=== PATIENT | female | born 2000 ===

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

== ENCOUNTER 2022-04-05 16:00 | Emergency (ER) | payer OTHER, SELFPAY ==
[2022-04-05 16:04] VITALS: BP 158/86; PULSE 82; RESP 18; O2SAT 98; BMI 30.9
--- NOTE | 2022-04-05 16:06 | ED_ITS ---
HPI - General Adult General Chief complaint: General Medical Stated complaint: Neck swelling Time Seen by Provider: 04/05/22 16:24 Source: patient Mode of arrival: ambulatory Limitations: no limitations History of Present Illness HPI narrative: 21-year-old female presents to the ER for evaluation of a sore throat for the last 1 week. She feels like she has swollen lymph nodes. She reports pain with eating and drinking but she is able to do so. No fevers. She states her 1-year-old son was home last week with URI symptoms and sickness. He was seen at [facility] and was tested negative for ?all viruses. ? patient report MD complaint: Sore throat, swollen lymph nodes Onset (ago): week(s) (1) Location: mouth and neck Radiation: non-radiation Severity: moderate Severity scale (1-10): 7 Quality: aching Pain Consistency: intermittent Relieving factors: none Exacerbating factors: eating Associated symptoms: denies other symptoms Treatments prior to arrival: none Related Data Previous Rx's Medication Instructions Recorded amoxicillin 875 mg-potassium 1 tab PO BID #20 tabs 04/05/22 clavulanate 125 mg tablet ibuprofen 600 mg tablet 600 mg PO Q8H PRN fever or pain 04/05/22 #14 tabs Allergies Allergy/AdvReac Type Severity Reaction Status Date / Time No Known Allergies Allergy Verified 02/16/21 11:41 Review of Systems Review of Systems: Yes all other systems are reviewed and are negative [facility] Past Medical History Medical History No active medical problems Family History Family History Mother Lymphoma Father No problems noted. Maternal Grandmother No problems noted. Maternal Grandfather No problems noted. Paternal Grandmother Arthritis Alzheimer's dementia Paternal Grandfather No problems noted. Sister No problems noted. Social History Social History Household Members: Significant Other and Family Housing: Apartment Alcohol intake: never Patient Tobacco Use Status: Never used Tobacco Advance Directives: No Advance Directives Information Provided: Yes Gender identity: Female Physical Exam ED Vital Signs: Vital Signs - 24 hr 04/05/22 16:04 Pulse Rate 82 Respiratory Rate 18 Blood Pressure 158/86 H Pulse Oximetry 98 Oxygen Delivery Method Room Air BMI result Body Mass Index 30.9 Appearance: Alert. Oriented X3. No acute distress. Eyes: Pupils equal, round and reactive to light. ENT: Pharynx with mild to moderate posterior pharyngeal erythema without tonsillar swelling or exudate. Uvula midline. Normal voice, handling se cretions normally. Neck: Normal inspection. Neck supple. Anterior cervical lymphadenopathy noted. Trachea midline. CVS: Normal heart rate and rhythm. Pulses normal. Respiratory: No respiratory distress. Breath sounds normal. Skin: Skin warm and dry. Normal skin color. Normal skin turgor. No rashes. Extremities: Normal inspection x4, normal range of motion. Neuro: Oriented X 3. Nonfocal, steady gait Course Course Course Narrative: 21 yo female presents to the ER for sore throat starting 1 week ago. She states her 1-year-old son was home last week with URI. He tested negative for everything at the [facility]. She denies fevers at home. Able to tolerate p.o. but swallowing is painful. No evidence of peritonsillar or retropharyngeal abscess on examination. Handling secretions normally, normal voice. Strep and viral swabs ordered. Reevaluation(s) Reevaluation #1: Patient tested positive for strep throat. Will treat accordingly. Patient counseled on results and management. Stable for discharge home. Medical Decision Making Medical Decision Making [facility] Narrative: 21-year-old female presenting to the ER for evaluation of strep throat. She reports sensation of anterior neck swelling. None appreciated on examination. Her airway is pain. Normal voice and healing secretions normally. Exam is not consistent with retropharyngeal or peritonsillar abscess. Doubt mono. Was swabbed for strep, COVID, flu Differential Diagnosis Differential Diagnoses: The differential diagnosis associated with the presentation includes Strep pharyngitis, COVID, flu, RSV, other viral syndrome, retropharyngeal abscess, peritonsillar abscess, mononucleosis Lab Data [facility] Lab Attestation statement: I reviewed the patient's lab results. Patient positive for group a strep Labs: Lab Results 04/05/22 Range/Units 16:09 S. pyogenes GrpA JAVIER Positive A (Negative) Prescription Management I considered prescription management with: Antibiotic Prescribed penicillin for strep throat. Critical Care Time Critical Care Time Critical Care Time: No Discharge Plan Discharge Clinical Impression: Acute streptococcal pharyngitis Patient Disposition: Home, Self-Care Instructions: Strep Throat (ED) Additional Instructions: You tested positive for strep throat today. Take the prescribed antibiotics as directed. Complete the entire course and did not miss any doses. Recommend warm saltwater gargles several times per day. Recommend [id number] Chloraseptic spray and Cepacol lozenges for sore throat. Rest and drink plenty of fluids. If you develop new or worsening symptoms call 911 or come back to the ER for further evaluation. Prescriptions: New amoxicillin-pot clavulanate 875-125 mg tablet 1 tab PO BID Qty: 20 0RF ibuprofen 600 mg tablet 600 mg PO Q8H PRN (Reason: fever or pain) Qty: 14 0RF Stand Alone Forms: Work/School Release
[2022-04-05 16:21] LABS: IDNOW Serial# 6674DD1D; Strep A Nucleic Acid Positive (Negative)
[2022-04-05 16:43] LABS: COVID-19 Test Negative (Negative); IDNOW Serial# 16C4AD1C
[2022-04-05 16:44] LABS: IDNOW Serial# BCCEAD1C; Influenza A Negative (Negative); Influenza B2 Negative (Negative)
== END 2022-04-05 16:29 | disposition home or self-care (01) ==
PROVIDERS: Physician Assistant; Emergency Provider Emergency Medicine Emergency Medical Services
DX: J02.0 Streptococcal pharyngitis (principal); Z20.822 Contact with and (suspected) exposure to COVID-19
CPT/HCPCS: 87502; 87635; 87651; 99282; 99283

== ENCOUNTER → 2022-04-27 09:51 | Outpatient (BNVA) | payer OTHER, SELFPAY | PROVIDERS: Visit Provider Advanced Practice Midwife | DX: O92.29 Other disorders of breast associated with pregnancy and the puerperium (principal) | CPT/HCPCS: 99212 ==

== ENCOUNTER 2022-05-05 15:21 | Outpatient (REF) | payer OTHER, SELFPAY ==
--- NOTE | ~2022-05-05 | US_ITS ---
EXAMINATION: US DIAGNOSTIC ULTRASOUND BREAST, LEFT CLINICAL INFORMATION: Left breast pain. Constant for 2 months.. COMPARISON: None. TECHNIQUE: Ultrasound of the breast is performed with real-time whitehead scale imaging and color Doppler. FINDINGS: There is no focal suspicious finding. There is no solid mass, architectural abnormality, duct ectasia, or edema in the soft tissue planes. Results are discussed with the patient at time of visit. US/US breast LT limited IMPRESSION: No suspicious left breast ultrasound findings. ASSESSMENT: BI-RADS 1: Negative RECOMMENDATION: Clinical follow-up
== END 2022-05-05 15:22 | disposition home or self-care (01) ==
LOC: HO.MAMMO 15:21
PROVIDERS: Visit Provider Advanced Practice Midwife
DX: O92.29 Other disorders of breast associated with pregnancy and the puerperium (principal)
CPT/HCPCS: 76642

== ENCOUNTER 2022-06-30 13:53 | Outpatient (REF) | payer OTHER, SELFPAY ==
[2022-07-01 02:29] LABS: CT PCR NOT DETECTED (Not Detect.); NG PCR NOT DETECTED (Not Detect.)
[2022-07-01 09:06] LABS: BV Int Neg Control Negative (Negative); BV Int Pos Control Positive (Positive)
== END 2022-06-30 13:54 | disposition home or self-care (01) ==
LOC: HO.LNP 13:53
PROVIDERS: Visit Provider Advanced Practice Midwife
DX: Z01.419 Encounter for gynecological examination (general) (routine) without abnormal findings (principal); Z20.2 Contact with and (suspected) exposure to infections with a predominantly sexual mode of transmission
CPT/HCPCS: 0353U; 87480; 87510; 87660

== ENCOUNTER 2022-11-14 20:19 | Emergency (ER) | payer OTHER, SELFPAY ==
--- NOTE | ~2022-11-14 | US_ITS ---
EXAMINATION: US OBSTETRICAL ULTRASOUND CLINICAL INFORMATION: Abdominal pain COMPARISON: ultrasound 01/22/2021 LMP: 09/08/2022. Gestational age by maternal dates is 9 weeks 4 days. Estimated date of delivery by maternal dates is 06/15/2023. TECHNIQUE: Transabdominal scanning was performed. FINDINGS: There is a single intrauterine gestational sac with visible yolk sac, embryo/fetus, and cardiac activity. There is no significant subchorionic hemorrhage or hematoma. HR: 134 beats per minute. CRL (crown rump length): 0.81 cm (6 weeks 6 days +/- 4 days). BLAKE (estimated date of delivery): 07/04/2023 +/- 4 days. MATERNAL ADNEXA: The right maternal ovary appears normal measuring 2.9 x 1.8 x 2.0 cm. The left maternal ovary appears normal measuring 2.0 x 1.4 x 1.9 cm. There is no significant maternal adnexal mass. No maternal pelvic ascites. US/US OB <= 14 weeks fetus IMPRESSION: 1. Single intrauterine gestation with ultrasound gestational age of 6 weeks 6 days +/- 4 days. 2. Estimated date of delivery is 07/04/2023 +/- 4 days. 3. No maternal adnexal mass or pelvic ascites.
[2022-11-14 20:49] VITALS: BP 118/62; PULSE 83; RESP 18; TEMP 36.8; O2SAT 100; BMI 35.0
--- NOTE | 2022-11-14 20:52 | ED.ABDPAIN ---
HPI - Abdominal Pain General Chief Complaint: Nausea/Vomiting/Diarrhea Stated Complaint: abdominal pain 10 weeks Time Seen by Provider: 11/15/22 00:51 Source: patient Mode of arrival: ambulatory Limitations: no limitations History of Present Illness HPI narrative: 22-year-old female about 7 weeks came in for evaluation of nausea for the past few days especially in the morning time associated with vomiting, patient took a home test which was positive about a week ago and has an appointment with OBGYN next week for her 1st care, patient is known to have A negative blood type never received RhoGAM after her 1st , coincidently patient had lunch at work when she developed nausea, vomiting and nonbloody watery diarrhea after lunch and there was a co-worker ate the same food developed the same symptoms. Patient declined otherwise vaginal bleeding or discharge, no dysuria, no frequency urination, no fever, no chills. Related Data Previous Rx's Medication Instructions Recorded ibuprofen 600 mg tablet 600 mg PO Q8H PRN fever or pain 04/05/22 #14 tabs levonorgestrel-ethinyl estradiol 1 tab PO DAILY #84 tabs 06/30/22 0.1 mg-20 mcg tablet nitrofurantoin 100 mg PO Q12H 7 days #14 caps 11/15/22 monohydrate/macrocrystals 100 mg capsule (Macrobid) ondansetron 4 mg disintegrating 4 mg PO Q8-12H PRN nausea and 11/15/22 tablet vomiting #6 tabs Allergies Allergy/AdvReac Type Severity Reaction Status Date / Time No Known Allergies Allergy Verified 11/14/22 20:49 Review of Systems Review of Systems All other systems are reviewed and are negative Constitutional: Reports as per HPI and Reports no additional constitutional complaints Eyes: Reports as per HPI and Reports no additional eye complaints Reports system reviewed and no additional complaints, except as documented Cardiovascular: Reports as per HPI and Reports no additional cardiovascular complaints Respiratory: Reports as per HPI and Reports no additional respiratory complaints Gastrointestinal: Reports as per HPI and Reports no additional gastrointestinal complaints Genitourinary: Reports no additional female genitourinary complaints Musculoskeletal: Reports no additional musculoskeletal complaints Skin/Breast: Reports system reviewed and no additional complaints, except as docu Psychiatric: Reports no additional psychiatric complaints Endocrine: Reports no additional endocrine complaints Hematologic/Lymphatic: Reports no additional hematologic/lymphatic complaints Allergic/Immunologic: Reports no additional allergic/immunologic complaints Reports system reviewed and no additional complaints, except as documented and Reports Abnormal speech present [facility] Past Medical History Medical History No active medical problems Family History Family History Mother Lymphoma Father No problems noted. Maternal Grandmother No problems noted. Maternal Grandfather No problems noted. Paternal Grandmother Arthritis Alzheimer's dementia Paternal Grandfather No problems noted. Sister No problems noted. Social History Social History Household Members: Significant Other and Family Housing: Apartment Alcohol intake: former Patient Tobacco Use Status: Never used Tobacco Smoked in Last 30 Days: No Use of substances other than those prescribed or required for medical reasons: No Advance Directives: No Advance Directives Information Provided: No Patient : Yes Gender identity: Female Physical Exam ED Vital Signs: Vital Signs - 24 hr 11/14/22 20:49 11/15/22 00:09 11/15/22 00:13 Temperature 98.3 F 98.2 F Pulse Rate 83 71 79 Respiratory Rate 18 16 15 Blood Pressure 118/62 98/47 L 127/51 L Pulse Oximetry 100 100 99 Oxygen Delivery Method Room Air Room Air Room Air BMI result Body Mass Index 35.0 Vital signs have been reviewed as appeared to be correct. Blood pressure normal. Heart rate normal. Respiration rate normal. Temperature normal. Oxygen saturation normal. Appearance: Alert. Oriented X3. No acute distress. Head: Normal external exam. Normocephalic. Atraumatic. No Timmons signs noted. No raccoon eyes noted Eyes: PERRLA. EOMI. Conjunctiva and sclera normal. Eyelids normal. ENT: TM's Normal. Pharynx normal. Uvula midline. Moist mucous membranes. No trismus noted. No drooling noted. No muffled voice noted. Neck: Normal inspection. Neck supple. FROM. No adenopathy. Thyroid Normal. No meningeal signs. No neck mass noted. CVS: Normal heart rate and rhythm. Heart sound normal. No murmurs noted. Pulses normal throughout. Respiratory: No respiratory distress. Painless inspiration. Breath sounds normal. No wheezes/rales/rhonchi noted. Chest nontender. No accessory muscle usage noted or decreased air movement noted. Abdomen: Soft and nontender. Bowel sounds normal in all 4 quadrants. No distention noted. No organomegaly noted. No visible injury noted. Pelvic exam: Deferred for the ultrasound. Back: No CVA tenderness. Full range of motion noted. Skin: Skin warm and dry. Normal skin color. Normal skin turgor. No rashes/lesions/lacerations noted. Extremities: No lower extremity edema. Extremities exhibit normal range of motion. Extremities nontender. Neuro: Oriented X 3. Cranial nerve exam: II-XII are grossly intact No motor deficit. No sensory deficit. Reflexes normal. Course Course Course Narrative: This is an RME: Additional HPI, ROS, PE not included below will be deferred to primary provider. This is a 53-megm[age]jjt-female, 10 weeks , here with abdominal pain, nausea, vomiting and diarrhea since today. Reports that she ate something for dinner and developed epigastric pain and nausea. Co-worker had the same meal was seen here for similar symptoms. She has not been seen by her OB for this as of yet. No vaginal bleeding or discharge. Unable to tolerate p.o. secondary to nausea vomiting and diarrhea. Plan: labs, UA, beta quant Reevaluation(s) Reevaluation #1: 7 weeks . 1. Nausea and vomiting for the past 3-4 days likely due to hyperemesis gravidarum. 2. Nausea vomiting, and diarrhea today after eating lunch with a co-worker 0 developed the same symptoms after eating the same food out likely a food poisoning. 3. Patient is A negative blood type, since no vaginal bleed or spotting case discussed with Dr. Vasquez who recommended not to give RhoGAM. 4. UTI in first-trimester will start on my group and patient was instructed to drink plenty of fluid. 5. Patient was instructed to keep the appointment with Ob as scheduled next week. Time: 01:20 Medical Decision Making Differential Diagnosis Differential Diagnoses: The differential diagnosis associated with the presentation includes (UTI, abnormal , hyperemesis gravidarum, food poisoning, dehydration, electrolyte abnormalities, severe anemia, ectopic .) Admission/Observation Consideration of admission/observation: Escalation of care including admission/observation considered Consult Healthcare Provider Management of the patient was discussed with: Interior Design Coordinator (Dr. Vasquez) Lab Data [facility] Lab Attestation statement: I reviewed the patient's lab results. 11/14/22 21:51 11/14/22 21:51 Labs: Lab Results 11/14/22 11/14/22 11/14/22 Range/Units 21:51 21:51 21:51 WBC 12.1 H (4.8-10.8) X10*3/uL RBC 4.25 (4.20-5.50) X10*6/uL Hgb 10.8 L (12.0-16.0) g/dl Hct 33.3 L (37.0-47.0) % MCV 78.4 L (80.0-98.0) fL MCH 25.4 L (27.0-33.0) pg MCHC 32.4 (31.0-35.0) g/dl RDW 16.4 H (11.0-16.0) % Plt Count 290 (160-400) X10*3/uL MPV 8.6 L (9.4-12.3) fL Immature Gran % (Auto) 0.7 H (0.0-0.4) % Neut % (Auto) 84.5 H (45-73) % Lymph % (Auto) 11.3 L (20-40) % [place] % (Auto) 3.1 (2-11) % Eos % (Auto) 0.2 (0-4) % Baso % (Auto) 0.2 (0-2) % Lymph # (Auto) 1.4 (1.2-4.9) X10*3/uL [place] # (Auto) 0.4 (0.1-1.2) X10*3/uL Eos # (Auto) 0.0 (0.0-0.4) X10*3/uL Baso # (Auto) 0.0 (0.0-0.2) X10*3/uL Abs Immat Gran (auto) 0.08 H (0.00-0.03) X10*3/uL Absolute Neuts (auto) 10.2 H (2.0-8.3) x10*3/uL Absolute Nucleated RBC 0.000 (0.0-0.012) X10*3/uL Nucleated RBC % (auto) 0.0 (0.0-0.2) /100WBC Sodium 140 (135-145) mmol/L Potassium 3.8 (3.3-5.1) mmol/L Chloride 107 (96-108) mmol/L Carbon Dioxide 24 (22-29) mmol/L Anion Gap 13 (12-20) BUN 11 (9-16) mg/dL Creatinine 0.77 (0.5-1.4) mg/dL Estim Creat Clear Calc 128.4 Estimated GFR > 60 Random Glucose 101 (60-115) mg/dL Calcium 9.9 (8.4-10.2) mg/dL Magnesium 2.0 (1.6-2.6) mg/dL Total Bilirubin 0.2 (0.0-1.0) mg/dL Direct Bilirubin < 0.2 (0.0-0.5) mg/dL AST 13 (5-31) U/L ALT 11 (0-31) U/L Alkaline Phosphatase 62 (39-117) U/L Total Protein 8.3 H (6.5-8.0) g/dL Albumin 4.5 (3.5-5.0) g/dL Beta HCG, Quant 830325 mIU/mL Urine Color Urine Appearance Urine pH (5.0-9.0) Ur Specific [place] (1.005-1.025) Urine Protein (Neg-Trace) mg/dL Urine Glucose (UA) (Negative) mg/dL Urine Ketones (Negative) mg/dL Urine Blood (Negative) Urine Nitrite (Negative) Ur Leukocyte Esterase (Negative) Urine RBC (0-2) /HPF Urine WBC (0-5) /HPF Ur Squamous Epith Cells (0-2) /HPF Urine Bacteria (None Seen) Hyaline Casts (0-2) /LPF Blood Type A Negative 11/14/22 Range/Units 23:57 WBC (4.8-10.8) X10*3/uL RBC (4.20-5.50) X10*6/uL Hgb (12.0-16.0) g/dl Hct (37.0-47.0) % MCV (80.0-98.0) fL MCH (27.0-33.0) pg MCHC (31.0-35.0) g/dl RDW (11.0-16.0) % Plt Count (160-400) X10*3/uL MPV (9.4-12.3) fL Immature Gran % (Auto) (0.0-0.4) % Neut % (Auto) (45-73) % Lymph % (Auto) (20-40) % [place] % (Auto) (2-11) % Eos % (Auto) (0-4) % Baso % (Auto) (0-2) % Lymph # (Auto) (1.2-4.9) X10*3/uL [place] # (Auto) (0.1-1.2) X10*3/uL Eos # (Auto) (0.0-0.4) X10*3/uL Baso # (Auto) (0.0-0.2) X10*3/uL Abs Immat Gran (auto) (0.00-0.03) X10*3/uL Absolute Neuts (auto) (2.0-8.3) x10*3/uL Absolute Nucleated RBC (0.0-0.012) X10*3/uL Nucleated RBC % (auto) (0.0-0.2) /100WBC Sodium (135-145) mmol/L Potassium (3.3-5.1) mmol/L Chloride (96-108) mmol/L Carbon Dioxide (22-29) mmol/L Anion Gap (12-20) BUN (9-16) mg/dL Creatinine (0.5-1.4) mg/dL Estim Creat Clear Calc Estimated GFR Random Glucose (60-115) mg/dL Calcium (8.4-10.2) mg/dL Magnesium (1.6-2.6) mg/dL Total Bilirubin (0.0-1.0) mg/dL Direct Bilirubin (0.0-0.5) mg/dL AST (5-31) U/L ALT (0-31) U/L Alkaline Phosphatase (39-117) U/L Total Protein (6.5-8.0) g/dL Albumin (3.5-5.0) g/dL Beta HCG, Quant mIU/mL Urine Color Yellow Urine Appearance Clear Urine pH 6.0 (5.0-9.0) Ur Specific [place] 1.025 (1.005-1.025) Urine Protein Trace (Neg-Trace) mg/dL Urine Glucose (UA) Negative (Negative) mg/dL Urine Ketones Negative (Negative) mg/dL Urine Blood Trace (Negative) Urine Nitrite Negative (Negative) Ur Leukocyte Esterase Trace H (Negative) Urine RBC 3-5 H (0-2) /HPF Urine WBC >50 H (0-5) /HPF Ur Squamous Epith Cells 3-5 (0-2) /HPF Urine Bacteria 3+ (None Seen) Hyaline Casts 0-2 (0-2) /LPF Blood Type Independent Interpretation I performed an independent interpretation of an: Ultrasound (Pelvic ultrasound:1. Single intrauterine gestation with ultrasound gestational age of 6 weeks 6 days +/- 4 days. 2. Estimated date of delivery is 07/04/2023 +/- 4 days. 3. No maternal adnexal mass or pelvic ascites.) Radiology Impression Discussion of test interpretation with radiology: I have reviewed the radiologist's reading. (1. Single intrauterine gestation with ultrasound gestational age of 6 weeks 6 days +/- 4 days. 2. Estimated date of delivery is 07/04/2023 +/- 4 days. 3. No maternal adnexal mass or pelvic ascites.) Discharge Plan Discharge Clinical Impression: First trimester , UTI (urinary tract infection), Abdominal pain in , Rh negative status during , Hyperemesis gravidarum Patient Disposition: Home, Self-Care Instructions: Acute Urinary Retention in Women (ED), Abdominal Pain in (ED) Prescriptions: New nitrofurantoin monohyd/m-cryst [Macrobid] 100 mg capsule 100 mg PO Q12H 7 Days Qty: 14 0RF Rx Instructions: must administer with a meal/food ondansetron 4 mg tablet,disintegrating 4 mg PO Q8-12H PRN (Reason: nausea and vomiting) Qty: 6 0RF No Action ibuprofen 600 mg tablet 600 mg PO Q8H PRN (Reason: fever or pain) Qty: 14 0RF levonorgestrel-ethinyl estrad 0.1-20 mg-mcg tablet 1 tab PO DAILY Qty: 84 4RF
[2022-11-14 21:59] LABS: MANUAL DIFF FLAG NO
[2022-11-14 22:11] LABS: Basophils Percent Auto 0.2 % (0-2); Eosinophils Percent Auto 0.2 % (0-4); Hematocrit 33.3 % (37.0-47.0); Hemoglobin 10.8 g/dl (12.0-16.0); Imm Gran Abs Auto 0.08 X10*3/uL (0.00-0.03); Imm Gran Pct Auto 0.7 % (0.0-0.4); Lymphocytes Absolute Auto 1.4 X10*3/uL (1.2-4.9); Lymphocytes Percent Auto 11.3 % (20-40); Mean Corpuscular HGB Conc 32.4 g/dl (31.0-35.0); Mean Corpuscular Hemoglobin 25.4 pg (27.0-33.0); Mean Corpuscular Volume 78.4 fL (80.0-98.0); Mean Platelet Volume 8.6 fL (9.4-12.3); Monocytes Absolute Auto 0.4 X10*3/uL (0.1-1.2); Monocytes Percent Auto 3.1 % (2-11); Neutrophils Absolute Auto 10.2 x10*3/uL (2.0-8.3); Neutrophils Percent Auto 84.5 % (45-73); Platelet Count 290 X10*3/uL (160-400); Red Blood Count 4.25 X10*6/uL (4.20-5.50); Red Cell Distribution Width 16.4 % (11.0-16.0); White Blood Count 12.1 X10*3/uL (4.8-10.8)
[2022-11-14 22:22] LABS: Alanine Aminotransferase 11 U/L (0-31); Albumin Level 4.5 g/dL (3.5-5.0); Alkaline Phosphatase 62 U/L (39-117); Anion Gap 13 (12-20); Aspartate Amino Transferase 13 U/L (5-31); Bilirubin Direct < 0.2 mg/dL (0.0-0.5); Bilirubin Total 0.2 mg/dL (0.0-1.0); Blood Urea Nitrogen 11 mg/dL (9-16); Calcium 9.9 mg/dL (8.4-10.2); Carbon Dioxide 24 mmol/L (22-29); Chloride 107 mmol/L (96-108); Creatinine Clr Calc Pharmacy 128.4; Estimated Glomerular Filt Rate > 60; Glucose Random 101 mg/dL (60-115); Potassium 3.8 mmol/L (3.3-5.1); Sodium 140 mmol/L (135-145); Total Protein 8.3 g/dL (6.5-8.0)
[2022-11-14 22:58] LABS: HCG Quantitative 109833 mIU/mL
--- NOTE | 2022-11-14 23:51 | PC.NURSE ---
Assumed care of patient at 2345. Pt calm and cooperative, respirations even and unlabored, skin pwd, alert and oriented x4, offers no complaints to this RN at this time. Pt provided with urine cup and brought to BR.
[2022-11-15 00:09] VITALS: BP 98/47; PULSE 71; RESP 16; TEMP 36.8; O2SAT 100
--- NOTE | 2022-11-15 00:09 | PC.NURSE ---
20g IV placed in LAC
[2022-11-15 00:10] LABS: Appearance Urine Clear; Color Urine Yellow; Glucose Urine UA Negative (Negative); Leukocyte Esterase Urine Trace (Negative); Nitrite Urine Negative (Negative); Specific Gravity - Urine 1.025 (1.005-1.025); UMIC TRIGGER UACC YES; Urine Blood Trace (Negative); Urine Ketones Negative (Negative); Urine Protein Trace mg/dL (Neg-Trace)
[2022-11-15 00:13] VITALS: BP 127/51; PULSE 79; RESP 15; O2SAT 99
[2022-11-15 00:14] LABS: Bacteria Urine 3+ (None Seen); Hyaline Casts Urine 0-2 /LPF (0-2); UACC Culture Trigger YES; WBC Urine >50 /HPF (0-5)
[2022-11-15] MEDS: Nitrofurantoin Monohyd/M-Cryst 100 MG CAPSULE PO (01:17)
[2022-11-15 01:18] VITALS: BP 111/58; PULSE 88; RESP 15; O2SAT 98
== END 2022-11-15 01:41 | disposition home or self-care (01) ==
PROVIDERS: Physician Assistant Medical; Emergency Provider Emergency Medicine
DX: O26.91 Pregnancy related conditions, unspecified, first trimester (principal); K08.89 Other specified disorders of teeth and supporting structures; R11.2 Nausea with vomiting, unspecified; Z3A.01 Less than 8 weeks gestation of pregnancy; Z79.899 Other long term (current) drug therapy
CPT/HCPCS: 36415; 76801; 80048; 80076; 81001; 83735; 84702; 85025; 86900; 86901; 87086; 87088; 87186; 99284

== ENCOUNTER 2022-12-12 16:52 | Emergency (ER) | payer OTHER, SELFPAY ==
--- NOTE | 2022-12-12 17:07 | ED.PREGNANCY ---
HPI - General Chief complaint: Nausea/Vomiting/Diarrhea Stated complaint: 11wks preg, not eating Time Seen by Provider: 12/12/22 17:56 Source: patient Mode of arrival: ambulatory Limitations: no limitations History of Present Illness HPI Narrative: 22-year-old female 11 weeks presents to ED for coughing, fever, nausea, and malaise for 2 days. 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 patient denies any chest pain or shortness of breath. Patient denies any abdominal pain, vaginal bleeding, dysuria, hematuria, vaginal discharge, or syncopal episode. Related Data Previous Rx's Medication Instructions Recorded ibuprofen 600 mg tablet 600 mg PO Q8H PRN fever or pain 04/05/22 #14 tabs levonorgestrel-ethinyl estradiol 1 tab PO DAILY #84 tabs 06/30/22 0.1 mg-20 mcg tablet nitrofurantoin 100 mg PO Q12H 7 days #14 caps 11/15/22 monohydrate/macrocrystals 100 mg capsule (Macrobid) ondansetron 4 mg disintegrating 4 mg PO Q8-12H PRN nausea and 11/15/22 tablet vomiting #6 tabs cephalexin 500 mg capsule 500 mg PO BID 7 days #14 caps 11/19/22 nitrofurantoin 100 mg PO Q12H 7 days #14 caps 12/12/22 monohydrate/macrocrystals 100 mg capsule (Macrobid) pyridoxine (vitamin B6) 25 mg 25 mg PO QID 4 days #16 tabs 12/12/22 tablet Allergies Allergy/AdvReac Type Severity Reaction Status Date / Time No Known Allergies Allergy Verified 12/12/22 17:08 Review of Systems Review of Systems: Fever coughing nausea dizziness nasal congestion Yes all other systems are reviewed and are negative PMF Past Medical History Medical History No active medical problems Family History Family History Mother Lymphoma Father No problems noted. Maternal Grandmother No problems noted. Maternal Grandfather No problems noted. Paternal Grandmother Arthritis Alzheimer's dementia Paternal Grandfather No problems noted. Sister No problems noted. Social History Social History Household Members: Significant Other and Family Housing: Apartment Alcohol intake: former Patient Tobacco Use Status: Never used Tobacco Advance Directives: No Advance Directives Information Provided: No Gender identity: Female Physical Exam Vital Signs: Vital Signs: Last Vital Signs Temp 98.5 F 12/12/22 17:08 Pulse 114 H 12/12/22 17:08 Resp 18 12/12/22 17:08 BP 120/80 12/12/22 17:08 Pulse Ox 97 12/12/22 17:08 O2 Del Method Room Air 12/12/22 17:08 BMI result Body Mass Index 30.9 Const: General: cooperative, healthy appearing, comfortable, no acute distress, well developed, alert, awake and Physically active Orientation/consciousness: oriented to person, oriented to place, oriented to time and patient oriented x3 HEENT: Head: Yes normal to inspection, Yes No palpable skull fracture present, Yes normocephalic and Yes atraumatic Ears: hearing grossly normal bilaterally, external ears normal, TM's normal bilaterally, TM normal on the right, TM normal on the left, EAC's normal, mastoids normal and no periauricular adenopathy Throat: Yes posterior oropharynx normal, Yes tonsils normal and Yes uvula midline Eyes: General: appearance normal, both eyes and all related structures Neck: Neck: Yes normal visual inspection, Yes full ROM, Yes no lymphadenopathy, Yes no meningeal signs, Yes trachea midline, Yes supple, No anterior neck swelling and No tender Chest: Chest palpation & inspection: normal inspection of the chest and normal palpation of entire chest wall Resp: Effort & Inspection: normal respiratory effort and able to speak in complete sentences Auscultation: clear to auscultation bilaterally Cardio: Jugular venous distension: no JVD Heart sounds: S1 normal heart sound present and S2 normal heart sound present GI: Inspection: Yes normal to inspection Palpation (GI): Soft to palpation, not firm, nontender, no guarding and not rigid : General: Yes no CVA tenderness Back/Spine/Pelvis: Back: no CVA tenderness Skin: General skin exam: no rashes or lesions noted, elasticity normal and turgor normal Neuro: General: oriented to person, oriented to place, oriented to time, patient oriented x3, gait normal, tone normal, moves all extremities, Normal light touch and pain sensation, no meningeal signs, no focal motor deficits, CN's II-XI intact bilaterally and normal sensation to monofilament Extrem: Other: bilateral lower extremity negative for swelling, pitting edema, or calf tenderness General: Yes normal to inspection and Yes full ROM Psych: Appearance: grossly normal, well kempt and not disheveled Course Course Course Narrative: RME - 22 yo female who is currently 11w2d (LMP 09/29/22) presents to the ER for evaluation of N/V x2 days, unable to tolerate PO. Reports fever of 103 last night along with fatigue and dizziness. +coughing, nasal congestion. No known sick contacts. No pelvic cramping or vaginal bleeding. OB aware and told her to come to the ER for evaluation. Plan: labs, viral studies, UA, antiemetics and PO trial Medical Decision Making Medical Decision Making [facility] Narrative: 22-year-old female 11 weeks presents to ED for coughing, fever, chills, nasal congestion, vomiting, and dizziness. Patient denies any abdominal pain, vaginal bleeding, vaginal discharge, flank pain, dysuria, hematuria. 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 Patient denies any chest pain or shortness of breath. patient denies any pleurisy. 18:40. Cbc is at baseline. Chemistry shows mild hyponatremia. UA shows leukocyte esterase and white blood cell count probably during the CT showed due to will treat as early UTI. Patient positive for COVID. Patient educated on oral hydration will be given anti emetics. Patient informed to follow-up with OBGYN. Patient does not need ultrasound of exam patient denies any complaints. Differential Diagnosis Differential Diagnoses: The differential diagnosis associated with the presentation includes ( Pneumonia, COVID, influenza, UTI, hyperemesis) Admission/Observation Consideration of admission/observation: Escalation of care including admission/observation considered Lab Data [facility] Lab Attestation statement: I reviewed the patient's lab results. 12/12/22 17:25 12/12/22 17:25 Labs: Lab Results 12/12/22 12/12/22 12/12/22 Range/Units 17:24 17:25 17:52 WBC 6.0 (4.8-10.8) X10*3/uL RBC 4.34 (4.20-5.50) X10*6/uL Hgb 11.2 L (12.0-16.0) g/dl Hct 33.5 L (37.0-47.0) % MCV 77.2 L (80.0-98.0) fL MCH 25.8 L (27.0-33.0) pg MCHC 33.4 (31.0-35.0) g/dl RDW 15.9 (11.0-16.0) % Plt Count 238 (160-400) X10*3/uL MPV 8.7 L (9.4-12.3) fL Immature Gran % (Auto) 0.3 (0.0-0.4) % Neut % (Auto) 74.7 H (45-73) % Lymph % (Auto) 15.0 L (20-40) % [place] % (Auto) 10.0 (2-11) % Eos % (Auto) 0.0 (0-4) % Baso % (Auto) 0.0 (0-2) % Lymph # (Auto) 0.9 L (1.2-4.9) X10*3/uL [place] # (Auto) 0.6 (0.1-1.2) X10*3/uL Eos # (Auto) 0.0 (0.0-0.4) X10*3/uL Baso # (Auto) 0.0 (0.0-0.2) X10*3/uL Abs Immat Gran (auto) 0.02 (0.00-0.03) X10*3/uL Absolute Neuts (auto) 4.5 (2.0-8.3) x10*3/uL Absolute Nucleated RBC 0.000 (0.0-0.012) X10*3/uL Nucleated RBC % (auto) 0.0 (0.0-0.2) /100WBC Sodium 132 L (135-145) mmol/L Potassium 3.6 (3.3-5.1) mmol/L Chloride 102 (96-108) mmol/L Carbon Dioxide 23 (22-29) mmol/L Anion Gap 11 L (12-20) BUN 5 L (9-16) mg/dL Creatinine 0.72 (0.5-1.4) mg/dL Estim Creat Clear Calc 128.8 Estimated GFR > 60 Random Glucose 90 (60-115) mg/dL Calcium 9.4 (8.4-10.2) mg/dL Magnesium 1.9 (1.6-2.6) mg/dL Total Bilirubin 0.3 (0.0-1.0) mg/dL Direct Bilirubin 0.1 (0.0-0.5) mg/dL AST 17 (5-31) U/L ALT 11 (0-31) U/L Alkaline Phosphatase 45 (39-117) U/L Total Protein 8.2 H (6.5-8.0) g/dL Albumin 4.5 (3.5-5.0) g/dL Beta HCG, Quant 79420 mIU/mL Urine Color Yellow Urine Appearance Cloudy Urine pH 5.5 (5.0-9.0) Ur Specific [place] 1.020 (1.005-1.025) Urine Protein Trace (Neg-Trace) mg/dL Urine Glucose (UA) Negative (Negative) mg/dL Urine Ketones 15 (Negative) mg/dL Urine Blood Negative (Negative) Urine Nitrite Negative (Negative) Ur Leukocyte Esterase Trace H (Negative) Urine RBC 0-2 (0-2) /HPF Urine WBC 6-10 H (0-5) /HPF Ur Squamous Epith Cells >20 (0-2) /HPF Urine Bacteria 2+ (None Seen) Hyaline Casts 0-2 (0-2) /LPF Influenza Type A (PCR) NEGATIVE (Negative) Influenza Type B (PCR) NEGATIVE (Negative) RSV RNA Qual (PCR) NEGATIVE (Negative) SARS-CoV-2 RNA (RT-PCR) POSITIVE A (Negative) Independent Historian Clinical information obtained from an independent historian. History obtained from or confirmed by: Spouse External Record Review External record reviewed: Other (prior ED visit) Tests considered The following testing was considered but not selected: Chest xray, US Prescription Management I considered prescription management with: Other (antiemetic) Discharge Plan Discharge Clinical Impression: COVID-19, UTI (urinary tract infection) Patient Disposition: Home, Self-Care Instructions: Urinary Tract Infection in (ED), COVID-19 (Coronavirus Disease 2019) (ED) Additional Instructions: return to the ED immediately for chest pain, shortness of breath, coughing up blood, leg swelling, calf pain, chest pain on inspiration, vaginal bleeding, nausea, vomitting, abdominal pain, blood in urine, flank pain inability to tolerate solid food/ liquid, weakness, dizziness, or any other concerning symptoms. Please follow-up with your primary care provider and OBGYN. Prescriptions: New nitrofurantoin monohyd/m-cryst [Macrobid] 100 mg capsule 100 mg PO Q12H 7 Days Qty: 14 0RF Rx Instructions: must administer with a meal/food pyridoxine (vitamin B6) 25 mg tablet 25 mg PO QID 4 Days Qty: 16 0RF No Action ibuprofen 600 mg tablet 600 mg PO Q8H PRN (Reason: fever or pain) Qty: 14 0RF nitrofurantoin monohyd/m-cryst [Macrobid] 100 mg capsule 100 mg PO Q12H 7 Days Qty: 14 0RF Rx Instructions: must administer with a meal/food ondansetron 4 mg tablet,disintegrating 4 mg PO Q8-12H PRN (Reason: nausea and vomiting) Qty: 6 0RF cephalexin 500 mg capsule 500 mg PO BID 7 Days Qty: 14 0RF levonorgestrel-ethinyl estrad 0.1-20 mg-mcg tablet 1 tab PO DAILY Qty: 84 4RF Stand Alone Forms: Work/School Release Interventions: ED Discharge Assessment Last Done: 12/12/22 18:57 Discharge Date/Time: 12/12/22 18:58 Print Language: Argentine
[2022-12-12 17:08] VITALS: BP 120/80; PULSE 114; RESP 18; TEMP 36.9; O2SAT 97; BMI 30.9
[2022-12-12 17:36] LABS: MANUAL DIFF FLAG NO
[2022-12-12 17:43] LABS: Hematocrit 33.5 % (37.0-47.0); Hemoglobin 11.2 g/dl (12.0-16.0); Imm Gran Abs Auto 0.02 X10*3/uL (0.00-0.03); Imm Gran Pct Auto 0.3 % (0.0-0.4); Lymphocytes Absolute Auto 0.9 X10*3/uL (1.2-4.9); Mean Corpuscular HGB Conc 33.4 g/dl (31.0-35.0); Mean Corpuscular Hemoglobin 25.8 pg (27.0-33.0); Mean Corpuscular Volume 77.2 fL (80.0-98.0); Mean Platelet Volume 8.7 fL (9.4-12.3); Monocytes Absolute Auto 0.6 X10*3/uL (0.1-1.2); Neutrophils Absolute Auto 4.5 x10*3/uL (2.0-8.3); Neutrophils Percent Auto 74.7 % (45-73); Platelet Count 238 X10*3/uL (160-400); Red Blood Count 4.34 X10*6/uL (4.20-5.50); Red Cell Distribution Width 15.9 % (11.0-16.0)
[2022-12-12 17:54] LABS: Alanine Aminotransferase 11 U/L (0-31); Albumin Level 4.5 g/dL (3.5-5.0); Alkaline Phosphatase 45 U/L (39-117); Anion Gap 11 (12-20); Aspartate Amino Transferase 17 U/L (5-31); Bilirubin Direct 0.1 mg/dL (0.0-0.5); Bilirubin Total 0.3 mg/dL (0.0-1.0); Blood Urea Nitrogen 5 mg/dL (9-16); Calcium 9.4 mg/dL (8.4-10.2); Carbon Dioxide 23 mmol/L (22-29); Chloride 102 mmol/L (96-108); Creatinine Clr Calc Pharmacy 128.8; Estimated Glomerular Filt Rate > 60; Glucose Random 90 mg/dL (60-115); Magnesium 1.9 mg/dL (1.6-2.6); Potassium 3.6 mmol/L (3.3-5.1); Sodium 132 mmol/L (135-145); Total Protein 8.2 g/dL (6.5-8.0)
[2022-12-12 18:00] LABS: Appearance Urine Cloudy; Color Urine Yellow; Glucose Urine UA Negative (Negative); Leukocyte Esterase Urine Trace (Negative); Nitrite Urine Negative (Negative); PH 5.5 (5.0-9.0); UMIC TRIGGER UACC YES; Urine Blood Negative (Negative); Urine Ketones 15 mg/dL (Negative); Urine Protein Trace mg/dL (Neg-Trace)
[2022-12-12 18:04] LABS: Bacteria Urine 2+ (None Seen); Hyaline Casts Urine 0-2 /LPF (0-2); RBC Urine 0-2 /HPF (0-2); Squamous Epithelial Cell Urine >20 /HPF (0-2); UACC Culture Trigger YES
[2022-12-12 18:15] LABS: Influenza A PCR NEGATIVE (Negative); Influenza B PCR NEGATIVE (Negative); Resp Syncy Virus RNA Qual PCR NEGATIVE (Negative); SARS COV2 PCR INHOUSE POSITIVE (Negative)
== END 2022-12-12 18:58 | disposition home or self-care (01) ==
PROVIDERS: Physician Assistant; Emergency Provider Internal Medicine
DX: U07.1 COVID-19 (principal); N39.0 Urinary tract infection, site not specified; R11.2 Nausea with vomiting, unspecified; R05.9 Cough, unspecified; R50.9 Fever, unspecified; Z79.899 Other long term (current) drug therapy
CPT/HCPCS: 0241U; 36415; 80048; 80076; 81001; 83735; 84702; 85025; 87086; 87088; 87186; 99282; 99283

== ENCOUNTER 2023-05-07 12:40 | Emergency (ER) | payer OTHER, SELFPAY ==
[2023-05-07 13:21] VITALS: BP 123/75; PULSE 96; RESP 18; TEMP 36.7; O2SAT 98; BMI 37.0
[2023-05-07 14:09] LABS: MANUAL DIFF FLAG NO
[2023-05-07 14:11] LABS: Basophils Percent Auto 0.2 % (0-2); Eosinophils Percent Auto 0.4 % (0-4); Hematocrit 29.7 % (37.0-47.0); Hemoglobin 9.3 g/dl (12.0-16.0); Imm Gran Abs Auto 0.06 X10*3/uL (0.00-0.03); Imm Gran Pct Auto 0.5 % (0.0-0.4); Lymphocytes Absolute Auto 1.4 X10*3/uL (1.2-4.9); Lymphocytes Percent Auto 12.4 % (20-40); Mean Corpuscular HGB Conc 31.3 g/dl (31.0-35.0); Mean Corpuscular Hemoglobin 23.3 pg (27.0-33.0); Mean Corpuscular Volume 74.3 fL (80.0-98.0); Mean Platelet Volume 8.6 fL (9.4-12.3); Monocytes Absolute Auto 0.7 X10*3/uL (0.1-1.2); Neutrophils Percent Auto 80.5 % (45-73); Platelet Count 246 X10*3/uL (160-400); Red Cell Distribution Width 15.5 % (11.0-16.0); White Blood Count 11.2 X10*3/uL (4.8-10.8)
[2023-05-07 14:23] LABS: Alanine Aminotransferase 11 U/L (0-31); Albumin Level 3.6 g/dL (3.5-5.0); Alkaline Phosphatase 136 U/L (39-117); Anion Gap 13 (12-20); Aspartate Amino Transferase 16 U/L (5-31); Bilirubin Total 0.3 mg/dL (0.0-1.0); Blood Urea Nitrogen 5 mg/dL (9-16); Calcium 8.9 mg/dL (8.4-10.2); Carbon Dioxide 23 mmol/L (22-29); Chloride 104 mmol/L (96-108); Creatinine Clr Calc Pharmacy 157.8; Estimated Glomerular Filt Rate > 60; Glucose Random 78 mg/dL (60-115); Potassium 4.1 mmol/L (3.3-5.1); Sodium 136 mmol/L (135-145); Total Protein 7.8 g/dL (6.5-8.0)
[2023-05-07 14:46] LABS: Influenza A PCR NEGATIVE (Negative); Influenza B PCR NEGATIVE (Negative); Resp Syncy Virus RNA Qual PCR NEGATIVE (Negative); SARS COV2 PCR INHOUSE NEGATIVE (Negative)
[2023-05-07 16:18] VITALS: BP 112/66; PULSE 89
[2023-05-07 16:20] VITALS: BP 120/66; PULSE 97
[2023-05-07 16:22] VITALS: BP 100/67; PULSE 103
--- NOTE | 2023-05-07 16:24 | ED_ITS ---
HPI - URI/Sore Throat General Chief Complaint: Upper Respiratory Symptoms Stated Complaint: Fever/Bodyaches/Headache 32Wks preg Time Seen by Provider: 05/07/23 16:05 Source: patient and family Mode of arrival: ambulatory Limitations: no limitations History of Present Illness HPI Narrative: 23-year-old female who is currently 32 weeks presents the ER with complaints of 3 days of subjective fevers, chills, body aches, nasal congestion, cough, sore throat. Patient taking Tylenol with continued symptoms. Patient reports decreased oral intake due to sore throat. Her son was diagnosed 3 days ago with croup. She denies any abdominal pain, vomiting, diarrhea, vaginal bleeding, shortness of breath or chest pain. She reports normal movement. She is followed by [facility] OB. Her due date is June 30. She has had some intermittent hypertension throughout her which is being monitored by OB as well as PAPI on FE tabs. Related Data Previous Rx's Medication Instructions Recorded ibuprofen 600 mg tablet 600 mg PO Q8H PRN fever or pain 04/05/22 #14 tabs levonorgestrel-ethinyl estradiol 1 tab PO DAILY #84 tabs 06/30/22 0.1 mg-20 mcg tablet nitrofurantoin 100 mg PO Q12H 7 days #14 caps 11/15/22 monohydrate/macrocrystals 100 mg capsule (Macrobid) ondansetron 4 mg disintegrating 4 mg PO Q8-12H PRN nausea and 11/15/22 tablet vomiting #6 tabs cephalexin 500 mg capsule 500 mg PO BID 7 days #14 caps 11/19/22 nitrofurantoin 100 mg PO Q12H 7 days #14 caps 12/12/22 monohydrate/macrocrystals 100 mg capsule (Macrobid) pyridoxine (vitamin B6) 25 mg 25 mg PO QID 4 days #16 tabs 12/12/22 tablet cephalexin 500 mg capsule 500 mg PO BID #14 caps 05/07/23 Allergies Allergy/AdvReac Type Severity Reaction Status Date / Time No Known Allergies Allergy Verified 05/07/23 13:21 Review of Systems 2 Review of Systems: Yes all other systems are reviewed and are negative Constitutional: Constitutional: Reports no additional constitutional complaints, Reports body ache(s), Reports chills, Reports fever(s), Reports headache(s) and Denies weakness Eyes: Eyes: Reports no additional eye complaints and Denies change in vision ENT: Reports system reviewed and no additional complaints, except as documented, Denies dizziness, Reports headache(s), Reports nasal congestion, Denies nasal discharge and Denies neck pain Cardiovascular: Cardiovascular: Reports no additional cardiovascular complaints, Denies chest pain, Denies leg edema and Denies dyspnea Respiratory: Respiratory: Reports no additional respiratory complaints, Reports cough and Denies dyspnea Gastrointestinal: Gastrointestinal: Reports no additional gastrointestinal complaints, Denies abdominal pain, Denies diarrhea, Denies nausea and Denies vomiting Genitourinary: Genitourinary: Reports no additional female genitourinary complaints and Denies urinary incontinence Musculoskeletal: Musculoskeletal: Reports no additional musculoskeletal complaints, Denies back pain, Denies arthralgias, Denies joint swelling, Denies neck pain, Denies numbness and Denies tingling Integumentary/Breasts: Skin/Breast: Reports system reviewed and no additional complaints, except as docu and Denies rash Neurologic: Reports system reviewed and no additional complaints, except as documented, Denies Abnormal speech present, Denies dizziness, Reports headache(s), Denies numbness, Denies tingling and Denies weakness PMFSH Past Medical History Attestation statement: The following information was validated with the patient. Source: old records reviewed and nursing notes reviewed Medical History No active medical problems Family History Family History Mother Lymphoma Father No problems noted. Maternal Grandmother No problems noted. Maternal Grandfather No problems noted. Paternal Grandmother Arthritis Alzheimer's dementia Paternal Grandfather No problems noted. Sister No problems noted. Social History Social History Household Members: Significant Other and Family Housing: Apartment Alcohol intake: former Patient Tobacco Use Status: Never used Tobacco Smoked in Last 30 Days: No Use of substances other than those prescribed or required for medical reasons: No Advance Directives: No Gender identity: Female Physical Exam 2 Vital Signs: Vital Signs: Last Vital Signs Temp 98.1 F 02/11/24 13:21 Pulse 98 05/07/23 16:27 Resp 18 05/07/23 16:27 BP 100/67 05/07/23 16:22 Pulse Ox 100 05/07/23 16:27 O2 Del Method Room Air 05/07/23 16:27 BMI result Body Mass Index 37.0 Const: General: cooperative, healthy appearing, comfortable and no acute distress Orientation/consciousness: patient oriented x3 Limitations: no limitations HEENT: Head: Yes normal to inspection Ears: hearing grossly normal bilaterally and TM's normal bilaterally General nose exam: Normal external nose present Face and sinus: Yes normal facial exam Mouth: Normal oral and palatal mucosa present Throat: Yes posterior oropharynx normal, Yes tonsils normal and Yes uvula midline Eyes: General: appearance normal, both eyes and all related structures P upils: Equal, round and reactive pupils present Neck: Neck: Yes normal visual inspection, Yes full ROM, Yes no lymphadenopathy and Yes no meningeal signs Chest: Chest palpation & inspection: normal inspection of the chest Resp: Effort & Inspection: normal respiratory effort Auscultation: clear to auscultation bilaterally Cardio: Rate: regular rate Rhythm: regular rhythm Peripheral pulses: P eripheral pulses 2+ throughout GI: Other: +gravid uterus Inspection: Yes normal to inspection Palpation (GI): Soft to palpation and nontender Auscultation: normal bowel sounds Back/Spine/Pelvis: Thoracic/Lumbar Spine: thoracic and lumbar spine normal to inspection Skin: General skin exam: no rashes or lesions noted Neuro: General: patient oriented x3, no meningeal signs, no focal motor deficits and normal sensation to monofilament Cranial nerves: Yes Equal, round and reactive pupils present Cognition (Neuro): normal cognition S peech: No Abnormal speech present Gait exam (Neuro): Normal gait present M otor exam (neuro): 5/5 motor strength present throughout Extrem: General: Yes normal to inspection, Yes no pedal edema and Yes no calf tenderness Course Course Course Narrative: Labs show microcytic anemia. Viral testing is negative for flu, COVID, RSV. heart tones are 150. Orthostatics are negative. Likely viral syndrome. Recommended supportive care at home with the patient. She does appear well hydrated appearing so I recommended that she continue to drink fluids, return for worsening symptoms and follow-up with her OB as needed Reevaluation(s) Reevaluation #1: [id number] is consistent with UTI. No flank pain or abdominal pain or vomiting to suggest pyelonephritis or renal colic. Patient will have a urine culture sent and will be discharged with an oral antibiotic Medical Decision Making Medical Decision Making [facility] Narrative: 23-year-old female who is currently 32 weeks presents the ER with complaints of 3 days of subjective fevers, chills, body aches, nasal congestion, cough, sore throat. Patient taking Tylenol with continued symptoms. Patient reports decreased oral intake due to sore throat. Her son was diagnosed 3 days ago with croup. She denies any abdominal pain, vomiting, diarrhea, vaginal bleeding, shortness of breath or chest pain. She reports normal movement. She is followed by [facility] OB. Her due date is June 30. She has had some intermittent hypertension throughout her which is being monitored by OB as well as PAPI on FE tabs.. LS CTA. No lymphadenopathy or meningeal signs. Exam is benign. Vitals are stable. Will send viral testing Will review labs ordered from triage, have nursing obtain heart tones, perform orthostatic vital signs Differential Diagnosis Differential Diagnoses: The differential diagnosis associated with the presentation includes Viral syndrome Admission/Observation Consideration of admission/observation: Escalation of care including admission/observation considered Lab Data [facility] Lab Attestation statement: I reviewed the patient's lab results. Microcytic anemia 05/07/23 14:04 05/07/23 14:04 Labs: Lab Results 05/07/23 05/07/23 Range/Units 14:04 16:33 WBC 11.2 H (4.8-10.8) X10*3/uL RBC 4.00 L (4.20-5.50) X10*6/uL Hgb 9.3 L (12.0-16.0) g/dl Hct 29.7 L (37.0-47.0) % MCV 74.3 L (80.0-98.0) fL MCH 23.3 L (27.0-33.0) pg MCHC 31.3 (31.0-35.0) g/dl RDW 15.5 (11.0-16.0) % Plt Count 246 (160-400) X10*3/uL MPV 8.6 L (9.4-12.3) fL Immature Gran % (Auto) 0.5 H (0.0-0.4) % Neut % (Auto) 80.5 H (45-73) % Lymph % (Auto) 12.4 L (20-40) % [place] % (Auto) 6.0 (2-11) % Eos % (Auto) 0.4 (0-4) % Baso % (Auto) 0.2 (0-2) % Lymph # (Auto) 1.4 (1.2-4.9) X10*3/uL [place] # (Auto) 0.7 (0.1-1.2) X10*3/uL Eos # (Auto) 0.0 (0.0-0.4) X10*3/uL Baso # (Auto) 0.0 (0.0-0.2) X10*3/uL Abs Immat Gran (auto) 0.06 H (0.00-0.03) X10*3/uL Absolute Neuts (auto) 9.0 H (2.0-8.3) x10*3/uL Absolute Nucleated RBC 0.000 (0.0-0.012) X10*3/uL Nucleated RBC % (auto) 0.0 (0.0-0.2) /100WBC Sodium 136 (135-145) mmol/L Potassium 4.1 (3.3-5.1) mmol/L Chloride 104 (96-108) mmol/L Carbon Dioxide 23 (22-29) mmol/L Anion Gap 13 (12-20) BUN 5 L (9-16) mg/dL Creatinine 0.64 (0.5-1.4) mg/dL Estim Creat Clear Calc 157.8 Estimated GFR > 60 Random Glucose 78 (60-115) mg/dL Calcium 8.9 (8.4-10.2) mg/dL Total Bilirubin 0.3 (0.0-1.0) mg/dL AST 16 (5-31) U/L ALT 11 (0-31) U/L Alkaline Phosphatase 136 H (39-117) U/L Total Protein 7.8 (6.5-8.0) g/dL Albumin 3.6 (3.5-5.0) g/dL Urine Color Yellow Urine Appearance Cloudy Urine pH 6.5 (5.0-9.0) Ur Specific [place] 1.010 (1.005-1.025) Urine Protein Negative (Neg-Trace) mg/dL Urine Glucose (UA) Negative (Negative) mg/dL Urine Ketones Negative (Negative) mg/dL Urine Blood Negative (Negative) Urine Nitrite Negative (Negative) Ur Leukocyte Esterase Large (3+) H (Negative) Urine RBC 0-2 (0-2) /HPF Urine WBC >50 H (0-5) /HPF Ur Squamous Epith Cells 11-20 (0-2) /HPF Urine Bacteria 4+ (None Seen) Hyaline Casts 0-2 (0-2) /LPF Influenza Type A (PCR) NEGATIVE (Negative) Influenza Type B (PCR) NEGATIVE (Negative) RSV RNA Qual (PCR) NEGATIVE (Negative) SARS-CoV-2 RNA (RT-PCR) NEGATIVE (Negative) Independent Historian Clinical information obtained from an independent historian. History obtained from or confirmed by: Parent Prescription Management I considered prescription management with: Antibiotic Discharge Plan Discharge Clinical Impression: Viral infection, UTI (urinary tract infection) Patient Disposition: Home, Self-Care Instructions: Urinary Tract Infection in Women (ED), Viral Syndrome (ED) Additional Instructions: Your testing for COVID flu and RSV are negative Your blood work shows that you have some anemia. Continue to take your iron supplements. Take Tylenol for any pain or fever Increase fluids, rest Return for any worsening symptoms Continue to follow with your OB Prescriptions: New cephalexin 500 mg capsule 500 mg PO BID Qty: 14 0RF No Action ibuprofen 600 mg tablet 600 mg PO Q8H PRN (Reason: fever or pain) Qty: 14 0RF nitrofurantoin monohyd/m-cryst [Macrobid] 100 mg capsule 100 mg PO Q12H 7 Days Qty: 14 0RF Rx Instructions: must administer with a meal/food ondansetron 4 mg tablet,disintegrating 4 mg PO Q8-12H PRN (Reason: nausea and vomiting) Qty: 6 0RF cephalexin 500 mg capsule 500 mg PO BID 7 Days Qty: 14 0RF nitrofurantoin monohyd/m-cryst [Macrobid] 100 mg capsule 100 mg PO Q12H 7 Days Qty: 14 0RF Rx Instructions: must administer with a meal/food pyridoxine (vitamin B6) 25 mg tablet 25 mg PO QID 4 Days Qty: 16 0RF levonorgestrel-ethinyl estrad 0.1-20 mg-mcg tablet 1 tab PO DAILY Qty: 84 4RF Referrals: Physician,None [Primary Care Provider] - 1 week
[2023-05-07 16:27] VITALS: PULSE 98; RESP 18; O2SAT 100
[2023-05-07 16:39] LABS: Appearance Urine Cloudy; Color Urine Yellow; Glucose Urine UA Negative (Negative); Leukocyte Esterase Urine Large (3+) (Negative); Nitrite Urine Negative (Negative); PH 6.5 (5.0-9.0); UMIC TRIGGER UACC YES; Urine Blood Negative (Negative); Urine Ketones Negative (Negative); Urine Protein Negative (Neg-Trace)
[2023-05-07 17:09] LABS: Bacteria Urine 4+ (None Seen); Hyaline Casts Urine 0-2 /LPF (0-2); RBC Urine 0-2 /HPF (0-2); UACC Culture Trigger YES; WBC Urine >50 /HPF (0-5)
== END 2023-05-07 17:57 | disposition home or self-care (01) ==
PROVIDERS: Physician Assistant Medical; Emergency Provider Emergency Medicine
DX: B34.9 Viral infection, unspecified (principal); N39.0 Urinary tract infection, site not specified; R50.9 Fever, unspecified; M79.10 Myalgia, unspecified site; Z79.899 Other long term (current) drug therapy; Z20.822 Contact with and (suspected) exposure to COVID-19; Z20.828 Contact with and (suspected) exposure to other viral communicable diseases
CPT/HCPCS: 0241U; 36415; 80053; 81001; 85025; 87086; 99283; 99284

== ENCOUNTER 2023-08-25 17:19 | Emergency (ER) | payer OTHER, SELFPAY ==
--- NOTE | ~2023-08-25 | CT_ITS ---
CT facial bones wo IV con, CT head/brain wo IV con CLINICAL INFORMATION: Reason for Exam left sided facial swelling COMPARISON: No prior CT scan available for comparison. TECHNIQUE: Department standard protocol. This CT examination was performed using dose optimization techniques as appropriate, variously including the following: *Automated exposure control *Adjustment of mA and/or kV according to patient size (this includes techniques or standardized protocols for targeted exams where dose is matched to indication/reason for exam; i.e. extremities or head) *Use of iterative reconstruction technique DLP: 2270 mGy-cm FINDINGS: CEREBRAL HEMISPHERES: There is no evidence of intra-axial or extra-axial mass, hemorrhage or acute infarct. BRAIN PARENCHYMA: Normal whitehead-white matter differentiation. SUBDURAL SPACE: No bleed. BASAL GANGLIA AND PINEAL GLAND: Unremarkable VENTRICLES: Symmetric and normal in size. CEREBELLUM AND BRAINSTEM: No space-occupying mass, hemorrhage or acute infarct. CEREBELLOPONTINE ANGLES: No lesion found. ORBITS: No intraorbital mass. VESSELS: Unremarkable SKULL BASE: Unremarkable EXAMINATION: CT FACIAL BONES CLINICAL INFORMATION: Left-sided facial pain COMPARISON: None TECHNIQUE: Noncontrast CT scan This CT examination was performed using dose optimization techniques as appropriate, variously including the following: *Automated exposure control *Adjustment of mA and/or kV according to patient size (this includes techniques or standardized protocols for targeted exams where dose is matched to indication/reason for exam; i.e. extremities or head) *Use of iterative reconstruction technique FINDINGS : SKULL BASE: Included structures at skull base are normal. BONES: Skull base, orbital bones, nasal bones, . Mandibles, zygomatic arches, and included cervical vertebrae are normal. ORBITS: Globes are symmetric. Orbital structures are normal. SALIVARY GLANDS: Unremarkable SINUSES: there is circumferential mucosal thickening of the left maxillary sinus suggesting chronic sinusitis. There is occlusion of right ostiomeatal units. No air-fluid level. There is a retention cyst in the floor of the right maxillary sinus surrounding the roots of upper molar tooth protruding into the base of the right maxillary sinus roughly measures [address]/CT facial bones wo IV con IMPRESSION: 1. No CT evidence of intracranial space-occupying mass, bleed or infarct. 2. No facial bone fractures. 3. Circumferential mucosal thickening of the left maxillary sinus suggesting chronic sinusitis. No air-fluid level. 4. Retention cyst at the floor of the right maxillary sinus at the base of which there is protruding root of upper molar tooth. Could be related to periodontal disease.
--- NOTE | ~2023-08-25 | XR_ITS ---
EXAMINATION: XR CHEST CLINICAL INFORMATION: Chest pain COMPARISON: None available. TECHNIQUE: 2 views of the chest were obtained. FINDINGS: No significant abnormality is noted involving the heart, lungs, mediastinum, bony thorax or soft tissues. XR/XR chest 2V IMPRESSION: Unremarkable examination.
--- NOTE | 2023-08-25 17:21 | ECG_ITS ---
Test Reason : CHEST PAIN Blood Pressure : / mmHG Vent. Rate : 064 BPM Atrial Rate : 064 BPM P-R Int : 136 ms QRS Dur : 086 ms QT Int : 404 ms P-R-T Axes : 010 041 016 degrees QTc Int : 416 ms Normal sinus rhythm Normal ECG No previous ECGs available Referred By: Generic ED Physician Electronically Signed By:KSENIA MCMAHAN
[2023-08-25 17:33] VITALS: BP 138/69; PULSE 77; RESP 20; TEMP 37.2; O2SAT 100; BMI 38.4
--- NOTE | 2023-08-25 17:43 | ED_ITS ---
HPI - General Adult General Chief complaint: General Medical Stated complaint: chest pain, cold symptoms Time Seen by Provider: 08/25/23 20:11 Source: patient Mode of arrival: ambulatory Limitations: no limitations History of Present Illness ED Provider: Watson Moralez PA-C HPI narrative: Old female presents to the ER for evaluation of left-sided facial pain and swelling. Patient reports that she had left sided facial pain and left upper dental pain that started yesterday. She did break and upper tooth 1 week ago and has been unable to get him with her dentist. She states she woke up today with her left upper cheek swollen. She also had a left-sided headache. She also developed central chest pain which prompted ER evaluation. She denies any shortness of breath. She states the pain in her chest is gone, it was central, sharp in nature, nonradiating. Denies any shortness of breath. No lower extremity swelling. MD complaint: Left-sided facial pain and swelling, chest pain Onset (ago): day(s) Location: head, face and mouth Radiation: non-radiation Severity: moderate Quality: aching Pain Consistency: intermittent Relieving factors: none Associated symptoms: headaches and weakness Treatments prior to arrival: NSAID Related Data Previous Rx's ?Medication ?Instructions ?Recorded ibuprofen 600 mg tablet 600 mg PO Q8H PRN fever or pain 04/05/22 #14 tabs levonorgestrel-ethinyl estradiol 1 tab PO DAILY #84 tabs 06/30/22 0.1 mg-20 mcg tablet nitrofurantoin 100 mg PO Q12H 7 days #14 caps 11/15/22 monohydrate/macrocrystals 100 mg capsule (Macrobid) ondansetron 4 mg disintegrating 4 mg PO Q8-12H PRN nausea and 11/15/22 tablet vomiting #6 tabs cephalexin 500 mg capsule 500 mg PO BID 7 days #14 caps 11/19/22 nitrofurantoin 100 mg PO Q12H 7 days #14 caps 12/12/22 monohydrate/macrocrystals 100 mg capsule (Macrobid) pyridoxine (vitamin B6) 25 mg 25 mg PO QID 4 days #16 tabs 12/12/22 tablet cephalexin 500 mg capsule 500 mg PO BID #14 caps 05/07/23 amoxicillin 875 mg-potassium 1 tab PO BID #28 tabs 08/25/23 clavulanate 125 mg tablet ibuprofen 600 mg tablet 600 mg PO Q8H PRN fever or pain 08/25/23 #20 tabs Allergies Allergy/AdvReac Type Severity Reaction Status Date / Time No Known Allergies Allergy Verified 08/25/23 17:40 Review of Systems 2 Review of Systems: Yes all other systems are reviewed and are negative [facility] Past Medical History Medical History No active medical problems Family History Family History Mother Lymphoma Father No problems noted. Maternal Grandmother No problems noted. Maternal Grandfather No problems noted. Paternal Grandmother Arthritis Alzheimer's dementia Paternal Grandfather No problems noted. Sister No problems noted. Social History Social History Household Members: Significant Other and Family Housing: Apartment Alcohol intake: former Patient Tobacco Use Status: Never used Tobacco Advance Directives: No Advance Directives Information Provided: No Do you have a plan to hurt others: No Plan Gender identity: Female Physical Exam ED Vital Signs: Vital Signs - 24 hr 08/25/23 17:33 08/25/23 19:24 08/25/23 20:59 Temperature 98.9 F 98.4 F 98.4 F Pulse Rate 77 66 66 Respiratory Rate 20 16 16 Blood Pressure 138/69 119/65 119/65 Pulse Oximetry 100 100 100 Oxygen Delivery Method Room Air Room Air Room Air BMI result Body Mass Index 38.4 Appearance: Alert. Oriented X3. No acute distress. Head/face: normocephalic, atraumatic. Mild swelling of the left maxillary area no added with tenderness of the left maxillary sinus. Eyes: Pupils equal, round and reactive to light. ENT: Pharynx normal. No tonsillar swelling or exudate. Left upper incisor cracked with associated gingival erythema and tenderness, no fluctuance or visible abscess. Neck: Normal inspection. Neck supple. CVS: Normal heart rate and rhythm. Pulses normal. Respiratory: No respiratory distress. Breath sounds normal. Abdomen: Soft and nontender. +BS x4 Skin: Skin warm and dry. Normal skin color. Normal skin turgor. No rashes. Extremities: No lower extremity edema. No joint swelling. No calf tenderness. Neuro/psych: Oriented X 3. Left upper extremity with 4/5 strength, strength is 5/5 in all 3 other extremities. No sensory deficit. CN II-XII intact. Normal speech and cognition. Course Course Course Narrative: This is a Rapid Medical Examination (RME) performed by Praful Sarmiento PA-C in triage. Full HPI, ROS, assessment and treatment plan per primary provider in the Main ED. 23 yo female 1 month here for eval of left sided facial swelling which began yesterday morning. took tylenol with minimal relief. now reports REINOSO and chest pressure. she is one month . +noted swelling to left cheek. no obvious dental abscess/infection. can raise b/l eye brows. strength to LUE slightly decreased compared to right. no pronator drift or slurred speech. ambulating with steady gait. Plan: ct, labs, ua Medications Administered Discontinued Medications Generic Name Dose Route Start Last Admin Trade Name Murtazaq PRN Reason Stop Dose Admin Acetaminophen 975 mg 08/25/23 20:44 08/25/23 20:57 Acetaminophen 325 Mg Tablet PO 08/25/23 20:45 975 mg ONCE ONE Administration Amoxicillin/Clavulanate Potassium 875 mg 08/25/23 20:44 08/25/23 20:57 Amoxicillin/Potassium Clav 875 Mg Tablet PO 08/25/23 20:45 875 mg ONCE ONE Administration Medical Decision Making Medical Decision Making [facility] Narrative: 23-year-old female presents the ER for evaluation of left upper facial pain and swelling that started yesterday. It is associated with a broken tooth on the upper left side. She has maxillary sinus tenderness on examination. Her vital signs today are normal, no tachycardia or hypoxia. Low clinical suspicion for PE. Her chest pain workup is unremarkable. CT scan performed which is showing thickening of the left maxillary sinus consistent with infection. This matches her clinical presentation and picture. Will start her on oral antibiotics for this. She needs dental follow-up. Differential Diagnosis Differential Diagnoses: The differential diagnosis associated with the presentation includes Acute sinusitis, chronic sinusitis, dental infection, Lyme disease, Brandt's palsy, migraine headache, low clinical suspicion for pulmonary embolism or CVA Admission/Observation Consideration of admission/observation: Escalation of care including admission/observation considered Lab Data [facility] Lab Attestation statement: I reviewed the patient's lab results. Mild anemia, normal renal function, urinalysis with some positive markers for infection however she is asymptomatic, will defer treatment today 08/25/23 18:22 08/25/23 18:22 Labs: Lab Results 08/25/23 Range/Units 18:22 WBC 7.4 (4.8-10.8) X10*3/uL RBC 4.01 L (4.20-5.50) X10*6/uL Hgb 12.0 D (12.0-16.0) g/dl Hct 34.5 L (37.0-47.0) % MCV 86.0 (80.0-98.0) fL MCH 29.9 (27.0-33.0) pg MCHC 34.8 (31.0-35.0) g/dl RDW 12.3 (11.0-16.0) % Plt Count 257 (160-400) X10*3/uL MPV 8.4 L (9.4-12.3) fL Immature Gran % (Auto) 0.3 (0.0-0.4) % Neut % (Auto) 58.7 (45-73) % Lymph % (Auto) 30.8 (20-40) % [place] % (Auto) 5.4 (2-11) % Eos % (Auto) 4.5 H (0-4) % Baso % (Auto) 0.3 (0-2) % Lymph # (Auto) 2.3 (1.2-4.9) X10*3/uL [place] # (Auto) 0.4 (0.1-1.2) X10*3/uL Eos # (Auto) 0.3 (0.0-0.4) X10*3/uL Baso # (Auto) 0.0 (0.0-0.2) X10*3/uL Abs Immat Gran (auto) 0.02 (0.00-0.03) X10*3/uL Absolute Neuts (auto) 4.3 (2.0-8.3) x10*3/uL Absolute Nucleated RBC 0.000 (0.0-0.012) X10*3/uL Nucleated RBC % (auto) 0.0 (0.0-0.2) /100WBC ESR 25 H (0-20) MM/HR PT 12.1 (11.1-13.3) SEC INR 1.0 (0.9-1.1) Sodium 143 (135-145) mmol/L Potassium 3.7 (3.3-5.1) mmol/L Chloride 108 (96-108) mmol/L Carbon Dioxide 25 (22-29) mmol/L Anion Gap 14 (12-20) BUN 10 (9-16) mg/dL Creatinine 0.82 (0.5-1.4) mg/dL Estim Creat Clear Calc 121.3 Estimated GFR > 60 Random Glucose 86 (60-115) mg/dL Calcium 9.5 D (8.4-10.2) mg/dL Magnesium 2.0 (1.6-2.6) mg/dL Total Bilirubin 0.4 (0.0-1.0) mg/dL AST 35 H (5-31) U/L ALT 54 H (0-31) U/L Alkaline Phosphatase 78 (39-117) U/L Troponin I High Sens < 2.7 (<3.5-17.0) ng/L C-Reactive Protein 1.93 H (< or = 0.50) mg/dL Total Protein 7.7 (6.5-8.0) g/dL Albumin 4.4 (3.5-5.0) g/dL Lipase 22 (8-78) U/L Beta HCG, Quant < 2 mIU/mL Urine Color Yellow Urine Appearance Turbid Urine pH 6.0 (5.0-9.0) Ur Specific [place] >= 1.030 H (1.005-1.025) Urine Protein 30 (1+) H (Neg-Trace) mg/dL Urine Glucose (UA) Negative (Negative) mg/dL Urine Ketones Negative (Negative) mg/dL Urine Blood Trace H (Negative) Urine Nitrite Negative (Negative) Ur Leukocyte Esterase Moderate (2+) H (Negative) Urine RBC 6-10 H (0-2) /HPF Urine WBC >50 H (0-5) /HPF Ur Squamous Epith Cells 3-5 (0-2) /HPF Urine Bacteria 2+ (None Seen) Hyaline Casts 0-2 (0-2) /LPF Urine Test NEGATIVE (NEGATIVE) Monoscreen Negative (Negative) Influenza Type A (PCR) NEGATIVE (Negative) Influenza Type B (PCR) NEGATIVE (Negative) RSV RNA Qual (PCR) NEGATIVE (Negative) SARS-CoV-2 RNA (RT-PCR) NEGATIVE (Negative) S. pyogenes GrpA JAVIER Negative (Negative) Independent Interpretation I performed an independent interpretation of an: CT Scan Interpretation: Left maxillary sinus thickening consistent with sinusitis, no visible abscess, agree with radiology read Radiology Impression Discussion of test interpretation with radiology: I have reviewed the radiologist's reading. Radiologist Impression: CT/CT head/brain wo IV con IMPRESSION: 1. No CT evidence of intracranial space-occupying mass, bleed or infarct. 2. No facial bone fractures. 3. Circumferential mucosal thickening of the left maxillary sinus suggesting chronic sinusitis. No air-fluid level. 4. Retention cyst at the floor of the right maxillary sinus at the base of which there is protruding root of upper molar tooth. Could be related to periodontal disease. External Record Review External record reviewed: Prior outpatient labs and Prior outpatient radiology Prescription Management I considered prescription management with: Pain Medication and Antibiotic Critical Care Time Critical Care Time Critical Care Time: No Discharge Plan Discharge Clinical Impression: Sinusitis Qualifiers: Sinusitis location: maxillary Chronicity: acute Recurrence: non-recurrent Q ualified Code(s): J01.00 - Acute maxillary sinusitis, unspecified Patient Disposition: Home, Self-Care Instructions: Sinusitis (ED) Additional Instructions: Your CT scan today showed infection of the sinus in the left side There is also concern for an evolving dental infection. Take the prescribed antibiotics as directed, complete the entire course and do not miss any doses Follow-up with your dentist as soon as possible. Follow-up with your primary care doctor as well. Take the prescribed Motrin as needed for pain. You can also take Tylenol If you develop new or worsening symptoms call 911 or come back to the ER for further evaluation. Prescriptions: New amoxicillin-pot clavulanate 875-125 mg tablet 1 tab PO BID Qty: 28 0RF ibuprofen 600 mg tablet 600 mg PO Q8H PRN (Reason: fever or pain) Qty: 20 0RF No Action ibuprofen 600 mg tablet 600 mg PO Q8H PRN (Reason: fever or pain) Qty: 14 0RF nitrofurantoin monohyd/m-cryst [Macrobid] 100 mg capsule 100 mg PO Q12H 7 Days Qty: 14 0RF Rx Instructions: must administer with a meal/food ondansetron 4 mg tablet,disintegrating 4 mg PO Q8-12H PRN (Reason: nausea and vomiting) Qty: 6 0RF cephalexin 500 mg capsule 500 mg PO BID 7 Days Qty: 14 0RF nitrofurantoin monohyd/m-cryst [Macrobid] 100 mg capsule 100 mg PO Q12H 7 Days Qty: 14 0RF Rx Instructions: must administer with a meal/food pyridoxine (vitamin B6) 25 mg tablet 25 mg PO QID 4 Days Qty: 16 0RF cephalexin 500 mg capsule 500 mg PO BID Qty: 14 0RF levonorgestrel-ethinyl estrad 0.1-20 mg-mcg tablet 1 tab PO DAILY Qty: 84 4RF Referrals: Fabien Ortiz MD [Primary Care Provider] - Interventions: ED Discharge Assessment Last Done: 08/25/23 20:59 Discharge Date/Time: 08/25/23 21:08 Print Language: Maltese
[2023-08-25 18:30] LABS: MANUAL DIFF FLAG NO
[2023-08-25 18:33] LABS: Basophils Percent Auto 0.3 % (0-2); Eosinophils Absolute Auto 0.3 X10*3/uL (0.0-0.4); Eosinophils Percent Auto 4.5 % (0-4); Hematocrit 34.5 % (37.0-47.0); Imm Gran Abs Auto 0.02 X10*3/uL (0.00-0.03); Imm Gran Pct Auto 0.3 % (0.0-0.4); Lymphocytes Absolute Auto 2.3 X10*3/uL (1.2-4.9); Lymphocytes Percent Auto 30.8 % (20-40); Mean Corpuscular HGB Conc 34.8 g/dl (31.0-35.0); Mean Corpuscular Hemoglobin 29.9 pg (27.0-33.0); Mean Platelet Volume 8.4 fL (9.4-12.3); Monocytes Absolute Auto 0.4 X10*3/uL (0.1-1.2); Monocytes Percent Auto 5.4 % (2-11); Neutrophils Absolute Auto 4.3 x10*3/uL (2.0-8.3); Neutrophils Percent Auto 58.7 % (45-73); Platelet Count 257 X10*3/uL (160-400); Red Blood Count 4.01 X10*6/uL (4.20-5.50); Red Cell Distribution Width 12.3 % (11.0-16.0); White Blood Count 7.4 X10*3/uL (4.8-10.8)
[2023-08-25 18:35] LABS: Appearance Urine Turbid; Color Urine Yellow; Glucose Urine UA Negative (Negative); Leukocyte Esterase Urine Moderate (2+) (Negative); Nitrite Urine Negative (Negative); Specific Gravity - Urine >= 1.030 (1.005-1.025); UMIC TRIGGER UACC YES; Urine Blood Trace (Negative); Urine Ketones Negative (Negative); Urine Protein 30 (1+) mg/dL (Neg-Trace)
[2023-08-25 18:38] LABS: UPreg QC Valid YES; Urine Pregnancy NEGATIVE (NEGATIVE)
[2023-08-25 18:42] LABS: IDNOW Serial# 58CA691E; Strep A Nucleic Acid Negative (Negative)
[2023-08-25 18:43] LABS: Bacteria Urine 2+ (None Seen); Hyaline Casts Urine 0-2 /LPF (0-2); Prothrombin Time 12.1 SEC (11.1-13.3); UACC Culture Trigger YES; WBC Urine >50 /HPF (0-5)
[2023-08-25 18:45] LABS: Monotest Negative (Negative)
[2023-08-25 18:47] LABS: Alanine Aminotransferase 54 U/L (0-31); Albumin Level 4.4 g/dL (3.5-5.0); Alkaline Phosphatase 78 U/L (39-117); Anion Gap 14 (12-20); Aspartate Amino Transferase 35 U/L (5-31); Bilirubin Total 0.4 mg/dL (0.0-1.0); Blood Urea Nitrogen 10 mg/dL (9-16); C Reactive Protein 1.93 mg/dL (< or = 0.50); Calcium 9.5 mg/dL (8.4-10.2); Carbon Dioxide 25 mmol/L (22-29); Chloride 108 mmol/L (96-108); Creatinine Clr Calc Pharmacy 121.3; Estimated Glomerular Filt Rate > 60; Glucose Random 86 mg/dL (60-115); Lipase 22 U/L (8-78); Potassium 3.7 mmol/L (3.3-5.1); Sodium 143 mmol/L (135-145); Total Protein 7.7 g/dL (6.5-8.0)
[2023-08-25 18:55] LABS: HCG Quantitative < 2 mIU/mL; Troponin-I High Sensitivity < 2.7 ng/L (<3.5-17.0)
[2023-08-25 19:10] LABS: Influenza A PCR NEGATIVE (Negative); Influenza B PCR NEGATIVE (Negative); Resp Syncy Virus RNA Qual PCR NEGATIVE (Negative); SARS COV2 PCR INHOUSE NEGATIVE (Negative)
[2023-08-25 19:12] LABS: Erythrocyte Sedimentation Rate 25 MM/HR (0-20)
[2023-08-25 19:24] VITALS: BP 119/65; PULSE 66; RESP 16; TEMP 36.9; O2SAT 100
[2023-08-25] MEDS: Amoxicillin/Potassium Clav 875 MG TABLET PO (20:57)
[2023-08-25] MEDS: Acetaminophen 325 MG TABLET 975 MG PO (20:57)
[2023-08-25 20:59] VITALS: BP 119/65; PULSE 66; RESP 16; TEMP 36.9; O2SAT 100
== END 2023-08-25 21:08 | disposition home or self-care (01) ==
PROVIDERS: Physician Assistant Medical; Emergency Provider Emergency Medicine Emergency Medical Services; PCP Internal Medicine
DX: J01.00 Acute maxillary sinusitis, unspecified (principal); R07.9 Chest pain, unspecified; S02.5XXA Fracture of tooth (traumatic), initial encounter for closed fracture; X58.XXXA Exposure to other specified factors, initial encounter; Y93.9 Activity, unspecified; Y92.9 Unspecified place or not applicable; Y99.9 Unspecified external cause status
CPT/HCPCS: 0241U; 36415; 70450; 70486; 71046; 80053; 81001; 81025; 83690; 83735; 84484; 84702; 85025; 85610; 85652; 86140; 86308; 87086; 87651; 93005; 99284

== ENCOUNTER → 2023-08-25 17:21 | Outpatient (BNV) | payer OTHER, SELFPAY | PROVIDERS: Emergency Provider Emergency Medicine Emergency Medical Services; PCP Internal Medicine; Visit Provider Internal Medicine | DX: R07.9 Chest pain, unspecified (principal) | CPT/HCPCS: 93010 ==

== ENCOUNTER 2024-10-07 09:16 | Emergency (ER) | payer OTHER, SELFPAY ==
[2024-10-07 09:24] VITALS: BP 122/61; PULSE 100; RESP 16; TEMP 36; O2SAT 99; BMI 39.1
--- NOTE | 2024-10-07 09:59 | ED.URI ---
HPI - URI/Sore Throat General Chief Complaint: Upper Respiratory Symptoms Stated Complaint: sore throat Time Seen by Provider: 10/07/24 10:18 Source: patient Mode of arrival: ambulatory Limitations: no limitations History of Present Illness ED Provider: HANNAH GOLDMAN PA-C HPI Narrative: 24 year old female presents to the ED today for evaluation of sore throat, cough, fever, and myalgias since yesterday. No known sick contacts. Also endorsing dysuria. Denies abdominal pain, hematuria, flank pain, N/V. Denies dysphagia. Related Data Previous Rx's ?Medication ?Instructions ?Recorded ibuprofen 600 mg tablet 600 mg PO Q8H PRN fever or pain 04/05/22 #14 tabs levonorgestrel-ethinyl estradiol 1 tab PO DAILY #84 tabs 06/30/22 0.1 mg-20 mcg tablet nitrofurantoin 100 mg PO Q12H 7 days #14 caps 11/15/22 monohydrate/macrocrystals 100 mg capsule (Macrobid) ondansetron 4 mg disintegrating 4 mg PO Q8-12H PRN nausea and 11/15/22 tablet vomiting #6 tabs cephalexin 500 mg capsule 500 mg PO BID 7 days #14 caps 11/19/22 nitrofurantoin 100 mg PO Q12H 7 days #14 caps 12/12/22 monohydrate/macrocrystals 100 mg capsule (Macrobid) pyridoxine (vitamin B6) 25 mg 25 mg PO QID 4 days #16 tabs 12/12/22 tablet cephalexin 500 mg capsule 500 mg PO BID #14 caps 05/07/23 amoxicillin 875 mg-potassium 1 tab PO BID #28 tabs 08/25/23 clavulanate 125 mg tablet ibuprofen 600 mg tablet 600 mg PO Q8H PRN fever or pain 08/25/23 #20 tabs amoxicillin 500 mg tablet 500 mg PO BID 10 days #20 tabs 10/07/24 benzocaine 15 mg-menthol 2.6 mg 1 lon mucous membrane Q2-4H PRN 10/07/24 lozenges (Cepacol Sore Throat sore throat #16 ea (benzocaine-menthol)) Allergies Allergy/AdvReac Type Severity Reaction Status Date / Time No Known Allergies Allergy Verified 10/07/24 09:24 Review of Systems Review of Systems: Constitutional: No fever, chills, fatigue, night sweats, weight changes ENT/Mouth: No ear pain, hearing loss, nasal congestion, sinus pain, rhinorrhea, +sore throat, +odynophagia, No dysphagia Eyes: No eye pain, swelling, redness, vision changes, discharge Cardio: No chest pain, palpitations, PICKENS, orthopnea, peripheral edema Pulm: No SOB, cough, sputum, wheezing, dyspnea, hemoptysis GI: No nausea, vomiting, hematemesis, abdominal pain, diarrhea, constipation, hematochezia, melena : No irregular bleeding, dysuria, frequency, urgency, hesitancy, hematuria, flank pain MSK: No back pain, neck pain, joint pain, myalgias Skin: No lesions, rashes Neuro: No weakness, numbness, paresthesias, LOC, dizziness, headache All other systems reviewed and are negative. [facility], [facility] Past Medical History Attestation statement: The following information was validated with the patient. Source: old records reviewed and nursing notes reviewed Medical History No active medical problems Family History Family History Mother Lymphoma Father No problems noted. Maternal Grandmother No problems noted. Maternal Grandfather No problems noted. Paternal Grandmother Arthritis Alzheimer's dementia Paternal Grandfather No problems noted. Sister No problems noted. Social History Social History Household Members: Significant Other and Family Housing: Apartment Alcohol intake: former Patient Tobacco Use Status: Never used Tobacco Advance Directives: No Advance Directives Information Provided: No Do you have a plan to hurt others: No Plan Gender identity: Female Physical Exam Vital Signs: Vital Signs: Last Vital Signs Temp 96.8 F 10/07/24 11:10 Pulse 100 10/07/24 11:10 Resp 16 10/07/24 11:10 BP 122/61 10/07/24 11:10 Pulse Ox 99 10/07/24 11:10 O2 Del Method Room Air 10/07/24 11:10 BMI result Body Mass Index 39.1 Vital signs stable, afebrile General: Well appearing, in no acute distress. Skin: Warm, dry, intact. No rashes or lesions. Head: Normocephalic, atraumatic. EENT: Hearing is intact b/l. Conjunctiva clear. Sclera is anicteric. PERRLA. EOM intact. Moist mucous membranes. Posterior oropharynx erythematous, no edema, no tonsillar exudates, no peritonsillar masses, uvula midline, controlling secretions and speaking complete sentences. no muffled voice Cardiac: Chest wall symmetric. RRR Lungs: Normal respiratory effort without accessory muscle use. CTA bilaterally Abdomen: Soft, non-tender, non-distended. No rebound tenderness or guarding. Positive BS x4. no cvat. Back: No midline spinous or paraspinal tenderness. No step off deformity. Ext: Upper and lower extremities atraumatic, without tenderness, deformity, swelling or erythema. Full ROM throughout Neuro: AOx3. Normal speech. Ambulating with steady gait. Course Course Course Narrative: Positive for strep throat. Negative COVID, flu, RSV. Urine mildly infected. > discussed results with patient. Amoxicillin sent to pharmacy for treatment. Patient has remained stable throughout ED visit today. Discussed worrisome signs and symptoms and when to return to the ED. All questions answered at this time. Patient is agreeable with disposition and stable for discharge. Medical Decision Making Medical Decision Making [facility] Narrative: 24 year old female presents to the ED today for evaluation of sore throat, cough, fever, and myalgias since yesterday. Vital signs stable, afebrile. on exam, Moist mucous membranes. Posterior oropharynx erythematous, no edema, no tonsilar exudates, no peritonsillar masses, uvula midline, controlling secretions and speaking complete sentences. no muffled voice. abd soft, ND/NT, no cvat. Differential diagnosis includes strep throat, viral syndrome, UTI. Unlikely [employer], retropharyngeal abscess, dental abscess, epiglottis, acute respiratory distress, pneumonia, mono, renal colic, nephrolithiasis, pyelonephritis. Plan for viral swabs, strep swab, urinalysis, disposition. Differential Diagnosis Differential Diagnoses: The differential diagnosis associated with the presentation includes as above. Admission/Observation Not indicated Lab Data [facility] Lab Attestation statement: I reviewed the patient's lab results. as above Labs: Lab Results 10/07/24 10/07/24 Range/Units 09:38 10:27 Urine Color Dark Yellow Urine Appearance Cloudy Urine pH 5.0 (5.0-9.0) Ur Specific Kellogg >= 1.030 H (1.005-1.025) Urine Protein Trace (Neg-Trace) mg/dL Urine Glucose (UA) Negative (Negative) mg/dL Urine Ketones Trace (Negative) mg/dL Urine Blood Negative (Negative) Urine Nitrite Negative (Negative) Ur Leukocyte Esterase Moderate (2+) H (Negative) Urine RBC 0-2 (0-2) /HPF Urine WBC >50 H (0-5) /HPF Ur Squamous Epith Cells >20 (0-2) /HPF Urine Bacteria 4+ (None Seen) Hyaline Casts 3-5 (0-2) /LPF Urine Test NEGATIVE (NEGATIVE) Influenza Type A (PCR) NEGATIVE (Negative) Influenza Type B (PCR) NEGATIVE (Negative) RSV RNA Qual (PCR) NEGATIVE (Negative) SARS-CoV-2 RNA (RT-PCR) NEGATIVE (Negative) S. pyogenes GrpA JAVIER Positive A (Negative) External Record Review External record reviewed: Inpatient record Prescription Management I considered prescription management with: Pain Medication and Antibiotic Social Determinants Patient?s care significantly limited by Social Determinants of Health including: Other Social Determinant of Health Critical Care Time Critical Care Time Critical Care Time: No Discharge Plan Discharge Clinical Impression: Strep pharyngitis, UTI (urinary tract infection) Patient Disposition: Home, Self-Care Instructions: Urinary Tract Infection in Women (ED), Strep Throat (ED) Additional Instructions: You were seen in the ED today for evaluation of sore throat. You tested positive for strep throat. You also have a urinary tract infection. Amoxicillin is an antibiotic that has been sent to your pharmacy. Take this twice daily for the next 10 days to treat strep throat. Do not stop taking these antibiotics early or miss any doses as this may cause infection to return or worsen. Cepacol throat lozenges have been sent to your pharmacy to help with throat pain. You may also purchase kxfu-flu-bvzpeer chloraseptic spray to numb your throat. Take Tylenol and ibuprofen as needed for body aches or fevers. Make sure to change your toothbrush as this contains bacteria. Strep throat is contagious. If anyone else in your household is exhibiting symptoms, please advise them to come to the ED, urgent care, or to see their primary care provider. Follow up with your primary care provider this week. Return to the Emergency Department if you experience worsening or uncontrolled pain, tongue swelling, difficulty swallowing, change in your voice, difficulty breathing, fevers 100.4?F or greater, recurrent vomiting, development of a rash, or any other concerning symptoms. In the case of emergency, call 911.? Prescriptions: New amoxicillin 500 mg tablet 500 mg PO BID 10 Days Qty: 20 0RF Cepacol Sore Throat (nancy-men) 15-2.6 mg lozenge 1 lon mucous membrane Q2-4H PRN (Reason: sore throat) Qty: 16 0RF No Action ibuprofen 600 mg tablet 600 mg PO Q8H PRN (Reason: fever or pain) Qty: 14 0RF nitrofurantoin monohyd/m-cryst [Macrobid] 100 mg capsule 100 mg PO Q12H 7 Days Qty: 14 0RF Rx Instructions: must administer with a meal/food ondansetron 4 mg tablet,disintegrating 4 mg PO Q8-12H PRN (Reason: nausea and vomiting) Qty: 6 0RF cephalexin 500 mg capsule 500 mg PO BID 7 Days Qty: 14 0RF nitrofurantoin monohyd/m-cryst [Macrobid] 100 mg capsule 100 mg PO Q12H 7 Days Qty: 14 0RF Rx Instructions: must administer with a meal/food pyridoxine (vitamin B6) 25 mg tablet 25 mg PO QID 4 Days Qty: 16 0RF cephalexin 500 mg capsule 500 mg PO BID Qty: 14 0RF amoxicillin-pot clavulanate 875-125 mg tablet 1 tab PO BID Qty: 28 0RF ibuprofen 600 mg tablet 600 mg PO Q8H PRN (Reason: fever or pain) Qty: 20 0RF levonorgestrel-ethinyl estrad 0.1-20 mg-mcg tablet 1 tab PO DAILY Qty: 84 4RF Referrals: Fabien Ortiz MD [Primary Care Provider, Internal Medicine] Interventions: ED Discharge Assessment Last Done: 10/07/24 11:10 Discharge Date/Time: 10/07/24 11:10 Print Language: Occitan
[2024-10-07 10:09] LABS: IDNOW Serial# 58CA691E; Strep A Nucleic Acid Positive (Negative)
[2024-10-07 10:32] LABS: Resp Syncy Virus RNA Qual PCR NEGATIVE (Negative); SARS COV2 PCR INHOUSE NEGATIVE (Negative)
[2024-10-07 10:41] LABS: Appearance Urine Cloudy; Glucose Urine UA Negative (Negative); PH 5.0 (5.0-9.0); Specific Gravity - Urine >= 1.030 (1.005-1.025); UMIC TRIGGER UACC YES
[2024-10-07 10:45] LABS: UPreg QC Valid YES
[2024-10-07 11:03] LABS: UACC Culture Trigger YES
[2024-10-07 11:10] VITALS: BP 122/61; PULSE 100; RESP 16; TEMP 36; O2SAT 99
--- OUTSIDE RECORDS SUMMARY | 2024-10-07 11:25 | XMS_ITS | Clinical Summary ---
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 Name Role Phone Unavailable Primary Care Provider Unavailabl e Immunizations Immunization Administration Dates Next Due DTaP 07/12/2006, 4,01/13/2003,11/13,2002 DTaP / HiB / IPV 09/01/2003,2002, 3 HPV 9-Valent 12/11/2017,11/23/2016 HPV, Quadrivalent 12/11/2017,11/23/2016 Hep B, Adolescent or Pediatric 01/13/2003,2002,2002 Hep B, adult 10/06/2023 IPV 07/12/2006, 3,2002,07/03 Influenza injectable quadriv alent preservative free 01/28/2021,12/24/2018,12/11/2017 Influenza, IIV3, injectable 02/01/2023, 9,12/11/2017 Influenza, seasonal, injecta ble, preservative free 12/06/2023,12/24/2018,12/11/2017 MMR 07/12/2006,06/02/2003 Meningococcal ACWY, unspecified 04/04/2019,11/23 Meningococcal MCV4P ACYW-135 04/04/2019,11/24/19 17 Pneumococcal Conjugate PCV 7 06/02/2003,01/14/20 03,2002 Tdap 04/11/2023,11/23/2016 Varicella 07/12/2006,06/02/2003 Social History Tobacco Use Types Packs/Day Years Used Date Smoking Tobacco: Never Assessed Comments Unknown Sex and Gender Information Value Date Recorded Sex Assigned at Female 01/24/2022 10:32 AM EDT Legal Sex Female 10:32 AM EDT Gender Identity Female 01/24/2022 10:32 AM EDT Sexual Orientation Straight 01/24/2022 10 :32 AM EDT Plan of Treatment Health Maintenance Due Date Last Done Comments Chlamydia and Gonorrhea Screening 2002 Depression Screening 2002 HIV Screening 2002 Lipid Panel 2002 SDOH Screening 2002 Disability Screening 2002 Alcohol/Substance Use Screening 2014 Tobacco Screening 2014 Family Planning (PISQ) 2017 Meningococcal B Vaccine (1 of 2 - Standard) 2018 Hepatitis C Screening 2020 Pap Smear 2023 COVID-19 Vaccine ( season) 2023 05/01/2021, 04/03/2021 Influenza Vaccine (#1) 2024 , 02/01/2023, 01/28/2021, Additional history exists DTaP/Tdap/Td Vaccines (8 - Td or Tdap) 04/11/2033 04/11/2023, 11/23/2016, 07/12/2006, Additional history exists Zoster Vaccines (1 of 2) 2052 RSV Patients and Patients Aged 60 years or older (1 - 1-dose 75+ series) 2077 Pneumococcal Vaccine: Pediatrics (0 to 5 Years) and At-Risk Patients (6 to 49) Years Aged Out 06/02/2003, 01/13/2003, 2002 No longer eligible based on patient's age to complete this topic HIB Vaccines Completed 09/01/2003, 10/26, 2002 IPV Vaccines Completed 07/12/2006, 09/2003, 01/13/2003, Additional history exists HPV Vaccines Completed 12/11/2017, 11/25, 11/23/2016, Additional history exists Meningococcal Vaccine Completed 04/04/2019 , 04/04/2019, 11/23/2016, Additional history exists Hepatitis B Vaccines Completed 10/06/2023, 01/13/2003, 2002, Additional history exists Hepatitis A Vaccines Aged Out No long er eligible based on patient's age to complete this topic RSV under 20 months Aged Out No longe r eligible based on patient's age to complete this topic Rotavirus Vaccines Aged Out No longer eligible based on patient's age to complete this topic Insurance [facility]
== END 2024-10-07 11:10 | disposition home or self-care (01) ==
PROVIDERS: Physician Assistant Medical; Emergency Provider Emergency Medicine; PCP Internal Medicine
DX: J02.0 Streptococcal pharyngitis (principal); N39.0 Urinary tract infection, site not specified; R05.9 Cough, unspecified; R50.9 Fever, unspecified; M79.10 Myalgia, unspecified site
CPT/HCPCS: 81001; 81025; 87086; 87637; 87651; 99282; 99283

== ENCOUNTER 2025-01-13 16:49 | Emergency (ER) | payer OTHER, SELFPAY ==
--- NOTE | ~2025-01-13 | US_ITS ---
CLINICAL HISTORY: pain US OB 1st Trimester transabdominal and transvaginal with Doppler Comparison: US/SR - US LESS THAN 14 WEEKS - 11/14/22 21:24 EDT Findings: Single intrauterine . CRL: 1.3 mm. EGA: 4 weeks, 6 days. BLAKE: 09/17/2025. Previously established gestational age: N/A . Yolk sac and pole is not definitely visualized Cardiac activity: Not observed. Small subchorionic hemorrhage. Normal color Doppler with arterial/venous spectral tracing of both ovaries. Two cysts are noted within the left ovary measuring up to 2.6 cm. IMPRESSION: 1. Single intrauterine estimated 4 weeks, 6 days gestational age by today's ultrasound criteria. Yolk sac, pole, or cardiac activity are not observed likely due to very early . Short-term follow-up is recommended. 2. No evidence of ovarian torsion. This document has been electronically signed by: Fernando Lyles MD on 01/13/2025 20:07:44
[2025-01-13 17:09] VITALS: BP 140/63; PULSE 84; RESP 18; TEMP 36.6; O2SAT 98; BMI 40.2
--- NOTE | 2025-01-13 17:12 | ED.GENADULT ---
HPI - General Adult General Chief complaint: Abdominal Pain Stated complaint: Lower abdominal pain Time Seen by Provider: 01/13/25 20:17 Source: patient Limitations: no limitations History of Present Illness ED Provider: Karen Pritchett PA-C HPI narrative: 24-year-old female who is morbidly obese, and currently , with last menstrual period being December 11, presents with abdominal cramping x1 day. Associated vaginal bleeding, described as spotting brown discharge. Denies fever, nausea, vomiting, dysuria, hematuria or back pain. Patient has yet to establish care, she has contacted her editor at large, they will be getting back to her within a week. Related Data Previous Rx's ?Medication ?Instructions ?Recorded ibuprofen 600 mg tablet 600 mg PO Q8H PRN fever or pain 04/05/22 #14 tabs levonorgestrel-ethinyl estradiol 1 tab PO DAILY #84 tabs 06/30/22 0.1 mg-20 mcg tablet nitrofurantoin 100 mg PO Q12H 7 days #14 caps 11/15/22 monohydrate/macrocrystals 100 mg capsule (Macrobid) ondansetron 4 mg disintegrating 4 mg PO Q8-12H PRN nausea and 11/15/22 tablet vomiting #6 tabs cephalexin 500 mg capsule 500 mg PO BID 7 days #14 caps 11/19/22 nitrofurantoin 100 mg PO Q12H 7 days #14 caps 12/12/22 monohydrate/macrocrystals 100 mg capsule (Macrobid) pyridoxine (vitamin B6) 25 mg 25 mg PO QID 4 days #16 tabs 12/12/22 tablet cephalexin 500 mg capsule 500 mg PO BID #14 caps 05/07/23 amoxicillin 875 mg-potassium 1 tab PO BID #28 tabs 08/25/23 clavulanate 125 mg tablet ibuprofen 600 mg tablet 600 mg PO Q8H PRN fever or pain 08/25/23 #20 tabs amoxicillin 500 mg tablet 500 mg PO BID 10 days #20 tabs 10/07/24 benzocaine 15 mg-menthol 2.6 mg 1 lon mucous membrane Q2-4H PRN 10/07/24 lozenges (Cepacol Sore Throat sore throat #16 ea (benzocaine-menthol)) Allergies Allergy/AdvReac Type Severity Reaction Status Date / Time No Known Allergies Allergy Verified 01/13/25 17:11 Review of Systems Review of Systems: Yes all other systems are reviewed and are negative Constitutional: Constitutional: Denies fatigue and Denies fever(s) Gastrointestinal: Gastrointestinal: Reports GI cramping, Denies nausea and Denies vomiting Genitourinary: Genitourinary: Denies hematuria, Denies dysuria, Denies pelvic pain and Denies flank pain Musculoskeletal: Musculoskeletal: Denies back pain Endocrine: Endocrine: Denies fatigue [facility] Past Medical History Attestation statement: The following information was validated with the patient. Medical History No active medical problems Family History Family History Mother Lymphoma Father No problems noted. Maternal Grandmother No problems noted. Maternal Grandfather No problems noted. Paternal Grandmother Arthritis Alzheimer's dementia Paternal Grandfather No problems noted. Sister No problems noted. Social History Social History Household Members: Significant Other and Family Housing: Apartment Alcohol intake: former Patient Tobacco Use Status: Never used Tobacco Advance Directives: No Advance Directives Information Provided: Yes Do you have a plan to hurt others: No Plan Gender identity: Female Physical Exam ED Vital Signs: Vital Signs - 24 hr 01/13/25 17:09 01/13/25 20:41 01/13/25 20:42 Temperature 98 F 98.7 F 98.7 F Pulse Rate 84 80 80 Respiratory Rate 18 20 20 Blood Pressure 140/63 H 112/42 L 112/42 L Pulse Oximetry 98 98 98 Oxygen Delivery Method Room Air Room Air Room Air BMI result Body Mass Index 40.2 Const Other: Alert well-appearing Orientation/consciousness: patient oriented x3 Resp Effort & Inspection: normal respiratory effort Cardio Other: Normal peripheral perfusion Other: Deferred Skin Other: Warm dry no rash Neuro General: patient oriented x3, gait normal, no focal motor deficits and CN's II-XI intact bilaterally Psych Other: Cooperative Course Course Course Narrative: RME, this is a rapid medical exam performed by Koby Reagan please refer to primary provider for complete H&P- 24-year-old female presents for evaluation of lower abdominal/pelvic pain. She also endorses some spotting. She reports that her last menstrual cycle was the middle of November on the . She found out that she was 4 days ago. Plan for labs, ECG and a fever ultrasound to evaluate for ectopic Medical Decision Making Medical Decision Making [facility] Narrative: 24-year-old female who is morbidly obese, and currently , with last menstrual period being December 11, presents with abdominal cramping x1 day. Associated vaginal bleeding, described as spotting brown discharge. Denies fever, nausea, vomiting, dysuria, hematuria or back pain. Patient has yet to establish care, she has contacted her editor at large, they will be getting back to her within a week. Problem: Early History: Per patient I have considered the following differential diagnoses: Ectopic, threatened , subchorionic hemorrhage, symptoms of early Plan: Screening labs including UA, serum quant and ultrasound obtained from triage. The patient is able to follow up with her court bailiff or sheriff, she needs close follow up, repeat hCG and repeat ultrasound. She understands. Sending with return precautions for new onset heavy bleeding. I have independently reviewed the following tests: Labs: No leukocytosis, not anemic, no electrolyte abnormality, beta hCG quant 3123 Ultrasound :Findings: Single intrauterine . CRL: 1.3 mm. EGA: 4 weeks, 6 days. BLAKE: 09/17/2025. Previously established gestational age: N/A . Yolk sac and pole is not definitely visualized Cardiac activity: Not observed. Small subchorionic hemorrhage. Normal color Doppler with arterial/venous spectral tracing of both ovaries. Two cysts are noted within the left ovary measuring up to 2.6 cm. IMPRESSION: 1. Single intrauterine estimated 4 weeks, 6 days gestational age by today's ultrasound criteria. Yolk sac, pole, or cardiac activity are not observed likely due to very early . Short-term follow-up is recommended. 2. No evidence of ovarian torsion. Differential Diagnosis Differential Diagnoses: The differential diagnosis associated with the presentation includes See medical decision-making Admission/Observation Consideration of admission/observation: Escalation of care including admission/observation considered Not applicable Lab Data [facility] Lab Attestation statement: I reviewed the patient's lab results. 01/13/25 17:22 01/13/25 17:22 Labs: Lab Results 01/13/25 Range/Units 17:22 WBC 9.1 (4.8-10.8) X10*3/uL RBC 4.17 L (4.20-5.50) X10*6/uL Hgb 11.1 L (12.0-16.0) g/dl Hct 33.2 L (37.0-47.0) % MCV 79.6 L (80.0-98.0) fL MCH 26.6 L (27.0-33.0) pg MCHC 33.4 (31.0-35.0) g/dl RDW 14.4 (11.0-16.0) % Plt Count 335 D (160-400) X10*3/uL MPV 8.2 L (9.4-12.3) fL Immature Gran % (Auto) 0.2 (0.0-0.4) % Neut % (Auto) 60.5 (45-73) % Lymph % (Auto) 32.0 (20-40) % Whitman % (Auto) 5.8 (2-11) % Eos % (Auto) 1.2 (0-4) % Baso % (Auto) 0.3 (0-2) % Lymph # (Auto) 2.9 (1.2-4.9) X10*3/uL Whitman # (Auto) 0.5 (0.1-1.2) X10*3/uL Eos # (Auto) 0.1 (0.0-0.4) X10*3/uL Baso # (Auto) 0.0 (0.0-0.2) X10*3/uL Abs Immat Gran (auto) 0.02 (0.00-0.03) X10*3/uL Absolute Neuts (auto) 5.5 (2.0-8.3) x10*3/uL Absolute Nucleated RBC 0.000 (0.0-0.012) X10*3/uL Nucleated RBC % (auto) 0.0 (0.0-0.2) /100WBC Sodium 138 (135-145) mmol/L Potassium 3.7 (3.3-5.1) mmol/L Chloride 105 (96-108) mmol/L Carbon Dioxide 27 (22-29) mmol/L Anion Gap 10 L (12-20) BUN 9 (9-16) mg/dL Creatinine 0.71 (0.5-1.4) mg/dL Estim Creat Clear Calc 137.3 Estimated GFR > 60 Random Glucose 101 (60-115) mg/dL Calcium 9.0 (8.4-10.2) mg/dL Total Bilirubin 0.2 (0.0-1.0) mg/dL AST 21 (5-31) U/L ALT 22 (0-31) U/L Alkaline Phosphatase 59 (39-117) U/L Total Protein 7.6 (6.5-8.0) g/dL Albumin 4.6 (3.5-5.0) g/dL Lipase 21 (8-78) U/L Beta HCG, Quant 3123 mIU/mL Urine Color Yellow Urine Appearance Clear Urine pH 6.0 (5.0-9.0) Ur Specific [place] 1.020 (1.005-1.025) Urine Protein Negative (Neg-Trace) mg/dL Urine Glucose (UA) Negative (Negative) mg/dL Urine Ketones Negative (Negative) mg/dL Urine Blood Negative (Negative) Urine Nitrite Negative (Negative) Ur Leukocyte Esterase Moderate (2+) H (Negative) Urine RBC 0-2 (0-2) /HPF Urine WBC 11-20 H (0-5) /HPF Ur Squamous Epith Cells 6-10 (0-2) /HPF Urine Bacteria 2+ (None Seen) Hyaline Casts 0-2 (0-2) /LPF Radiology Impression Discussion of test interpretation with radiology: I have reviewed the radiologist's reading. Discharge Plan Discharge Clinical Impression: and not yet delivered in first trimester Patient Disposition: Home, Self-Care Instructions: (ED) Additional Instructions: The ultrasound revealed an extremely early , you were measuring 4 weeks 6 days. There was no cardiac activity visualized today, this can be normal given the dates you are measuring by. This could also be indicative of an early miscarriage. You need close follow up with your editor at large, you need a repeat ultrasound in a week. They will also track and monitor your hCG levels. Call tomorrow to schedule an appointment. The ultrasound read is included below for you to provide to your editor at large. Single intrauterine . CRL: 1.3 mm. EGA: 4 weeks, 6 days. BLAKE: 09/17/2025. Previously established gestational age: N/A . Yolk sac and pole is not definitely visualized Cardiac activity: Not observed. Small subchorionic hemorrhage. Normal color Doppler with arterial/venous spectral tracing of both ovaries. Two cysts are noted within the left ovary measuring up to 2.6 cm. IMPRESSION: 1. Single intrauterine estimated 4 weeks, 6 days gestational age by today's ultrasound criteria. Yolk sac, pole, or cardiac activity are not observed likely due to very early . Short-term follow-up is recommended. 2. No evidence of ovarian torsion. Return precautions for the onset of severe abdominal cramping with a heavy vaginal bleeding, soaking through a pad in less than an hour. If you develop these symptoms seek medical attention. Prescriptions: No Action ibuprofen 600 mg tablet 600 mg PO Q8H PRN (Reason: fever or pain) Qty: 14 0RF nitrofurantoin monohyd/m-cryst [Macrobid] 100 mg capsule 100 mg PO Q12H 7 Days Qty: 14 0RF Rx Instructions: must administer with a meal/food ondansetron 4 mg tablet,disintegrating 4 mg PO Q8-12H PRN (Reason: nausea and vomiting) Qty: 6 0RF cephalexin 500 mg capsule 500 mg PO BID 7 Days Qty: 14 0RF nitrofurantoin monohyd/m-cryst [Macrobid] 100 mg capsule 100 mg PO Q12H 7 Days Qty: 14 0RF Rx Instructions: must administer with a meal/food pyridoxine (vitamin B6) 25 mg tablet 25 mg PO QID 4 Days Qty: 16 0RF cephalexin 500 mg capsule 500 mg PO BID Qty: 14 0RF amoxicillin-pot clavulanate 875-125 mg tablet 1 tab PO BID Qty: 28 0RF ibuprofen 600 mg tablet 600 mg PO Q8H PRN (Reason: fever or pain) Qty: 20 0RF amoxicillin 500 mg tablet 500 mg PO BID 10 Days Qty: 20 0RF Cepacol Sore Throat (nancy-men) 15-2.6 mg lozenge 1 lon mucous membrane Q2-4H PRN (Reason: sore throat) Qty: 16 0RF levonorgestrel-ethinyl estrad 0.1-20 mg-mcg tablet 1 tab PO DAILY Qty: 84 4RF Interventions: ED Discharge Assessment Last Done: 01/13/25 20:42 Discharge Date/Time: 01/13/25 20:42 Print Language: Welsh
[2025-01-13 17:26] LABS: MANUAL DIFF FLAG NO
[2025-01-13 17:29] LABS: Hematocrit 33.2 % (37.0-47.0); Hemoglobin 11.1 g/dl (12.0-16.0); Imm Gran Abs Auto 0.02 X10*3/uL (0.00-0.03); Imm Gran Pct Auto 0.2 % (0.0-0.4); Lymphocytes Absolute Auto 2.9 X10*3/uL (1.2-4.9); Mean Corpuscular HGB Conc 33.4 g/dl (31.0-35.0); Mean Corpuscular Hemoglobin 26.6 pg (27.0-33.0); Mean Corpuscular Volume 79.6 fL (80.0-98.0); NRBC Abs Auto 0.000 X10*3/uL (0.0-0.012); NRBC Pct Auto 0.0 /100WBC (0.0-0.2); Platelet Count 335 X10*3/uL (160-400); Red Blood Count 4.17 X10*6/uL (4.20-5.50); White Blood Count 9.1 X10*3/uL (4.8-10.8)
[2025-01-13 17:30] LABS: Appearance Urine Clear; Glucose Urine UA Negative (Negative); PH 6.0 (5.0-9.0); Specific Gravity - Urine 1.020 (1.005-1.025); UMIC TRIGGER UACC YES
[2025-01-13 17:32] LABS: UACC Culture Trigger YES
[2025-01-13 17:58] LABS: Alanine Aminotransferase 22 U/L (0-31); Albumin Level 4.6 g/dL (3.5-5.0); Alkaline Phosphatase 59 U/L (39-117); Anion Gap 10 (12-20); Aspartate Amino Transferase 21 U/L (5-31); Blood Urea Nitrogen 9 mg/dL (9-16); Calcium 9.0 mg/dL (8.4-10.2); Carbon Dioxide 27 mmol/L (22-29); Chloride 105 mmol/L (96-108); Creatinine Clr Calc Pharmacy 137.3; Estimated Glomerular Filt Rate > 60; Lipase 21 U/L (8-78); Potassium 3.7 mmol/L (3.3-5.1); Sodium 138 mmol/L (135-145); Total Protein 7.6 g/dL (6.5-8.0)
[2025-01-13 20:41] VITALS: BP 112/42; PULSE 80; RESP 20; TEMP 37.1; O2SAT 98
[2025-01-13 20:42] VITALS: BP 112/42; PULSE 80; RESP 20; TEMP 37.1; O2SAT 98
--- OUTSIDE RECORDS SUMMARY | 2025-01-13 21:14 | XMS_ITS | Clinical Summary ---
Demographics Address 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
--- OUTSIDE RECORDS SUMMARY | 2025-01-13 21:14 | XMS_ITS ---
Author Name [facility] [place] Organization Unknown Care Team Organization Name Specialty Phone Email Start Date End Da te [facility] Fabien Ortiz Primary Care 06/01/202210/25 [facility] Termed, PROVIDER Primary Care 02/01/202210/25
== END 2025-01-13 20:42 | disposition home or self-care (01) ==
PROVIDERS: Physician Assistant; Emergency Provider Emergency Medicine Emergency Medical Services; PCP Internal Medicine
DX: O20.9 Hemorrhage in early pregnancy, unspecified (principal); Z3A.01 Less than 8 weeks gestation of pregnancy; Z79.899 Other long term (current) drug therapy
CPT/HCPCS: 36415; 76801; 80053; 81001; 83690; 84702; 85025; 87086; 99283; 99284

== ENCOUNTER → 2025-01-13 17:13 | Outpatient (BNV) | payer OTHER, SELFPAY | PROVIDERS: Emergency Provider Emergency Medicine Emergency Medical Services; PCP Internal Medicine; Visit Provider Student in an Organized Health Care Education/Training Program | DX: O26.891 Other specified pregnancy related conditions, first trimester (principal); R10.30 Lower abdominal pain, unspecified; Z3A.01 Less than 8 weeks gestation of pregnancy | CPT/HCPCS: 76801; 76817 ==